=== PATIENT | female | born 1980 | race Caucasian/White ===

== ENCOUNTER 2018-10-11 00:56 | Outpatient (CLI) | payer OTHER, SELFPAY ==
--- NOTE | 2018-10-11 13:06 | DI.US_ITS ---
SYMPTOMS/DIAGNOSIS: MICROCYTIC ANEMIA, PASSING CLOTS WITH MENSES, ASSESS FOR ETIOLOGY PELVIC ULTRASOUND: A transabdominal and transvaginal examination was carried out. The uterus measures 7.3 cm in length, 3.5 cm in height and 8.4 cm in width. Four fundal fibroids are demonstrated, the largest of which measures 6 x 5.5 x 5.1 cm. There is also a 3.3 x 3.3 x 3.6 cm fibroid and a 5.5 x 5.5 cm fibroid and a 9 x 11 x 14.mm fibroid. The endometrium measures 16 mm. The right ovary measures 3.1 x 1.9 x 2 cm, the left ovary 2.4 x 2 x 1.6 cm. There is a question regarding a peripelvic cyst in the lower pole of the left kidney. There is no definite evidence of hydronephrosis. The left kidney measures 11.2 x 5.5 x 4.9 cm, the right kidney 9.1 x 3.8 x 5.4 cm. SUMMARY: Findings consistent with a fibroid uterus. There is a question regarding a peripelvic cyst in the lower pole of the left kidney. If there is any further question regarding the status of the left kidney, then a CT could be considered.
== END 2018-10-11 01:16 ==
PROVIDERS: PCP Nurse Practitioner Primary Care; Visit Provider Nurse Practitioner Primary Care
DX: D25.9 Leiomyoma of uterus, unspecified (principal); N28.1 Cyst of kidney, acquired; D50.9 Iron deficiency anemia, unspecified
CPT/HCPCS: 76830; 76856

== ENCOUNTER 2018-10-31 00:32 | Outpatient (CLI) | payer OTHER, SELFPAY ==
--- NOTE | 2018-10-31 13:17 | DI.CT_ITS ---
SYMPTOMS/DIAGNOSIS: PELVIS US CONSISTENT WITH FIBROID UTERUS, ? PELVIC CYST OF LOWER POLE OF LT KIDNEY, URGE INCONTINENCE OF URINE CT OF THE ABDOMEN AND PELVIS: Comparison is made with pelvic ultrasound dated [id number]. Images were performed from the lung bases through the ischial tuberosities after IV and without oral contrast. There is mild scarring at the left lung base. There are lesions in both superior left and right lobes of the liver consistent with hemangiomas. The patient is status post cholecystectomy. No biliary dilatation is seen. There is hardware in the lumbar spine creating mild artifact. There are two or three parapelvic cysts at the lower pole of the left kidney. 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 The bladder is unremarkable. There is no evidence of hydronephrosis. No urinary tract calculi are seen. The uterus is enlarged with multiple fibroids. The ovaries are unremarkable. There are diverticula scattered in the descending and sigmoid colon. There are no inflammatory changes or bowel dilatation. IMPRESSION: 1. Parapelvic cysts at the lower pole of the left kidney. There is no evidence of a suspicious mass. 2. Enlarged uterus with multiple fibroids. 3. Liver lesions, consistent with hemangiomas.
[2018-10-31] MEDS: Omnipaque 350 MG/ML 100 ML BTL IJ (13:18)
== END 2018-10-31 00:52 ==
PROVIDERS: PCP Nurse Practitioner Primary Care; Visit Provider Nurse Practitioner Primary Care
DX: N28.1 Cyst of kidney, acquired (principal); D25.9 Leiomyoma of uterus, unspecified; M85.2 Hyperostosis of skull; D18.03 Hemangioma of intra-abdominal structures; R32 Unspecified urinary incontinence
CPT/HCPCS: 74178; J3490

== ENCOUNTER 2018-11-09 15:32 | Outpatient (REF) | payer OTHER, SELFPAY ==
[2018-11-10 14:16] LABS: Chlamydia Result Negative; GC Result Negative; Specimen Description CERVIX
== END 2018-11-09 15:52 ==
LOC: LBN 15:32
PROVIDERS: PCP Nurse Practitioner Primary Care; Visit Provider Nurse Practitioner Family
DX: Z11.3 Encounter for screening for infections with a predominantly sexual mode of transmission (principal)
CPT/HCPCS: 87491; 87591

== ENCOUNTER 2022-02-03 15:34 | Outpatient (REF) | payer OTHER, SELFPAY ==
--- NOTE | 2022-02-03 13:30 | ENDOMET_PTH ---
PATIENT: Marisela Fraga LOC: [facility] U#:[id number] AGE/SX: 41/F ROOM: RE02/03/[address]: Estrella Morton DO : 1980 BED: DIS: 02/03/2022 SPEC #: [id number] RECD: 02/03/22 15:56 STATUS: FELIX REQ #: [id number] BALJEET: 02/03/22 13:[address]: Estrella Morton DEPT: Surgical Specimen RECD BY: Candice Delacruz ENTERED: 02/03/22 15:57 SP TYPE: Endomet OTHR DR: Mervat Vaughan Tissues: 1 - ENDOMETRIUM BX/EDWIN Procedures: GROSS AND MICRO LEVEL 4 Comments: [id number]
== END 2022-02-03 15:35 | disposition home or self-care (01) ==
LOC: LBN 15:34
PROVIDERS: PCP Nurse Practitioner Primary Care; Visit Provider Obstetrics & Gynecology
DX: N93.8 Other specified abnormal uterine and vaginal bleeding (principal); D25.9 Leiomyoma of uterus, unspecified; N85.01 Benign endometrial hyperplasia
CPT/HCPCS: 88305

== ENCOUNTER 2022-03-29 04:12 | Outpatient (CLI) | payer OTHER, SELFPAY ==
[2022-03-29 12:35] LABS: Abs Immature Grans 0.02 10^3/uL (0.0-0.06); Absolute Basophil Count 0.09 10^3/uL (0.0-0.2); Absolute Eosinophil Count 0.07 10^3/uL (0.0-0.7); Absolute Lymphocyte Count 1.64 10^3/uL (1.2-3.4); Absolute Monocyte Count 0.65 10^3/uL (0.1-0.8); Absolute Neutrophil Count 6.56 10^3/uL (1.2-6.7); Eosinophils % 0.8; HCT 43.2 % (36.0-46.0); HGB 14.1 g/dL (11.2-15.7); Immature Grans % 0.2; Lymphocytes % 18.2; MCH 29.4 pg (27.0-33.0); MCHC 32.6 % (32.0-36.0); MCV 90 fL (80-95); MPV 11.5 fL (8.0-11.0); Monocytes % 7.2; Neutrophils % 72.6; Platelet Count 319 10^3/uL (130-400); RBC 4.79 10^6/uL (3.93-5.22); RDW-SD 53.1 fL; WBC 9.03 10^3/uL (4.4-10.8)
[2022-03-29 14:59] LABS: Source Nasal/Nares
[2022-03-29 15:44] LABS: COVID-19 PCR Negative (Negative)
== END 2022-03-29 04:13 | disposition home or self-care (01) ==
LOC: LBO 04:13
PROVIDERS: PCP Internal Medicine; Visit Provider Obstetrics & Gynecology
DX: Z01.818 Encounter for other preprocedural examination (principal)
CPT/HCPCS: 36415; 86850; 86900; 86901; 87635; 85025

== ENCOUNTER 2022-03-31 11:34 | Observation (INO) | payer OTHER, SELFPAY ==
[2022-03-31] VITALS (15 sets, daily range): BP systolic 95–117; BP diastolic 47–74; PULSE 53–82; RESP 17–22; TEMP 35.6–36.9; O2SAT 93–99; BMI 37.6
[2022-03-31] MEDS: Lactated Ringers 1,000 ML 125 ML IV ×2 (06:52→11:49)
--- NOTE | 2022-03-31 06:59 | W.ANESPRE ---
General Info Date of Service Date Performed: 03/31/22 Height: 5 ft 7 in Weight: 109 kg Body Mass Index (BMI): 37.6 Surgical Procedure: Operation Date: 03/31/22 08:40 Proposed Procedure Side Surgeon p Hysterectomy Vaginal Laparoscopic Assist/Bi-Lat Salpingectomy/Possible Cysto Estrella DO Praveen Meds Allergies and Home Medications Allergies Allergy/AdvReac Type Severity Reaction Status Date / Time No Known Allergies Allergy Verified 03/31/22 06:31 Home Medication Medication Instructions Recorded ascorbic acid (vitamin C) 500 mg 500 mg PO DAILY 11/09/18 tablet colestipol 1 gram tablet 2 gm PO QAM 11/09/18 ferrous sulfate 325 mg (65 mg 325 mg PO DAILY 11/09/18 iron) tablet omeprazole 20 mg tablet,delayed 40 mg PO DAILY 11/09/18 release cyclobenzaprine 10 mg tablet 10 mg PO BID PRN 02/03/22 lidocaine 5 % topical patch 1 patch topical PRN 02/03/22 norethindrone acetate 5 mg tablet 5 mg PO BID #60 tabs 02/03/22 (Aygestin) vitamin B complex (B 1 tab PO DAILY 02/03/22 Complex-Vitamin B12 tablet) colestipol 1 gram tablet 1 g PO HS 03/29/22 Current Visit Medications: Current Medications Generic Name Dose Route Start Last Admin Trade Name Ethel PRN Reason Stop Dose Admin Ringer's Solution 1,000 mls @ 125 mls/hr 03/31/22 06:00 03/31/22 06:52 IV 03/31/22 16:00 125 mls/hr INFUSION TOMI Administration Cefazolin Sodium/Dextrose 2 gm in 50 mls @ 100 mls/hr 03/31/22 06:00 Ancef Duplex IVPB 03/31/22 23:59 PREOP TOMI IV Miscellaneous Supplies 1 each 03/31/22 06:00 Iv Access IV 03/31/22 23:59 DIRECTED TOMI Sodium Chloride 0 ml 03/31/22 06:00 Normal Saline Flush 10 Ml Syr IV 03/31/22 23:59 PRN PRN Sodium Chloride 0 ml 03/31/22 06:00 Normal Saline 10 Ml Vial IJ 03/31/22 23:59 DIRECTED PRN Sterile Water 0 ml 03/31/22 06:00 Water,Injection,Sterile 10 Ml Vial IJ 03/31/22 23:59 DIRECTED PRN PFSH Active Problems Active Problems: Problem Status Onset Code Fibroid uterus D25.9 Hx of microcytic hypochromic anemia Z86.2 Abnormal uterine bleeding N93.9 Medical History Medical History History of IBS Surgical History Surgical History History of ankle surgery ORIF History of spinal surgery 2 rods Tobacco Smoking/Tobacco Use Status: Never Substance Use Substance use: Never Prental History History 0 Para Hx # Term Pregnancies Multiple births Hx # Pregnancies Ectopic pregnancies AB induced Hx Number of Living Children AB spontaneous Vital Signs and Lab Results Vital Signs Most Recent Vital Signs in EMR: Most Recent Vital Signs Temp Pulse Resp BP Pulse Ox 36.9 C 77 18 107/74 96 03/31/22 06:18 03/31/22 06:18 03/31/22 06:18 03/31/22 06:18 03/31/22 06:18 Lab Results Blood Type / Crossmatch: Patient ABO/Rh B Positive 03/29/22 Antibody Screen NEGATIVE 03/29/22 Complete Blood Count: White Blood Count 9.03 10^3/uL (4.4-10.8) 03/29/22 12:25 Red Blood Count 4.79 10^6/uL (3.93-5.22) 03/29/22 12:25 Hemoglobin 14.1 g/dL (11.2-15.7) 03/29/22 12:25 Hematocrit 43.2 % (36.0-46.0) 03/29/22 12:25 Platelet Count 319 10^3/uL (130-400) 03/29/22 12:25 Complete Metabolic Panel: No Data to Display Liver Function Panel: No Data to Display Coagulation Panel: No Data to Display Cardiac Panel: No Data to Display Arterial Blood Gas: No Data to Display Venous Blood Gas: No Data to Display Pancreas Panel: No Data to Display Thyroid Panel: No Data to Display Infectious Disease: Coronavirus (COVID-19)(PCR) Negative (Negative) 03/31/22 07:08 Coronavirus 2019 Source Nasal/Nares 03/31/22 07:08 Blood Cultures: No Data to Display Toxicology Panel: No Data to Display Panel: No Data to Display Anesthesia Assessment and Plan Anesthesia History Personal History: No History of Anesthesia Complications Family History: No Family History of Anesthesia Complications Exercise Tolerance Exercise Tolerance: Metabolic Equivalents>4 Pertinent Negatives Pertinent Negatives: No Symptoms of GERD, No Major Cardiovascular Symptoms or Complaints, No Major Pulmonary Symptoms or Complaints and No History of CVA/TIA Cardiac & Pulmonary Exam Cardiac Exam: Normal S1/S2 Heart Sounds Pulmonary Exam: Clear Bilateral Breath Sounds Implantable Cardiac Device Does patient have a Pacemaker or an ICD?: No Airway Exam Known Difficult Airway: No Mallampati Class: 2 Mouth Opening: Normal (> 3cm) Thyromental Distance: Greater than 3 cm Neck Range of Motion: Limited ROM (Limited looking toward left, good extension) Neck Circumference: Normal Teeth Condition: Normal Dentition (Front top teeth chipped) ASA Classification ASA Score: ASA 2 Emergency Case?: No NPO Status NPO Status: NPO Clears >2 hours, Solids >8 hours Status Status: Negative HCG Anesthesia Plan Resuscitation Status: Full Code Anesthesia Technique: General Anesthesia Airway Planned: Endotracheal Tube Pain Management: Intrathecal Analgesia (Patient had rods placed in 2004 for lower back fracture, will attempt intrathecal narcotics but move on without if technically difficult) Monitors Used: Standard Monitors
[2022-03-31 07:19] LABS: Source Nasal/Nares
[2022-03-31 08:14] LABS: COVID-19 PCR Negative (Negative)
--- NOTE | 2022-03-31 10:15 | RT.EKG_ITS ---
APPROVED REPORT Exam: Resting ECG Reason for Exam: tachycardia Patient Location: I HR:59 bpm ECG Measurements Heart Rate 59 AXIS AR 158 P 56 QRSd 82 QRS 37 QT 457 T 17 QTc 452 Conclusion Sinus bradycardia...rate< 60 Normal Electrocardiogram
--- NOTE | 2022-03-31 10:27 | W.PM.PROGNOT ---
Date of Service Date of service: 03/31/22 Time of Service: 10:27 Assessment and Plan Assessment and plan (1) Fibroid uterus: Status: Acute Assessment and plan: Patient has a significantly large fibroid uterus which is causing abnormal uterine bleeding, and chronic anemia. Currently her hemoglobin has been stable at 14.1 with the use of progestational agents. She was here today for definitive surgery with hysterectomy, however she did have an immediate preoperative complication of sustained tachycardia. In light of this fact, surgery was canceled and postponed to a later date. She will have an evaluation by her hospitalist service while she is here. She will await resolution of her intrathecal. (2) Hx of microcytic hypochromic anemia: Status: Acute (3) Tachycardia: Status: Acute Assessment and plan: Current pulse is within normal range. Blood pressure is stable. Laboratory studies, EKG, hospitalist consultation all ordered. All of her questions were answered. Subjective Subjective Interval history since last seen: When patient was in the operating suite this morning, she had an intrathecal placed for pain control postoperatively. Upon her arrival to the OR, she had stable vital signs with blood pressure that was normal and a pulse in the 60s. Immediately post intrathecal placement, upon laying supine, she had an elevation in her pulse to 160s 170s which was sustained over the period of 5 to 10 minutes. During that time, her blood pressure was low in the 80s over 40s. She, however was asymptomatic with no chest pain, or shortness of breath. She was not aware that her heart rate was as fast as it was. In light of this new onset of tachycardia, though it spontaneous recently resolved, may decision was to postpone her surgical procedure in light of the fact that this will be a major abdominal procedure. She will be admitted for a short stay observation due to the fact that she received intrathecal narcotics. In the interval, I did contact cardiology for possible outpatient evaluation, and our hospitalist service for evaluation while inpatient. They recommended ordering laboratory studies which would include a troponin, basic metabolic panel, magnesium, be placed on telemetry, and have a stat EKG. Hospitalist service will see her and evaluate her today as well. All of these findings were discussed with both the patient, and her mother who is her support. At this point, she is feeling reasonably well, though disappointed in not having her surgery today. Exam Narrative Exam Narrative: Alert, oriented, no acute distress Const Nutritional Appearance: average body habitus Eyes General: appearance normal, both eyes and all related structures Neck Neck: normal visual inspection, supple and no lymphadenopathy noted Resp Effort & Inspection: normal respiratory effort, no audible wheezes and no cough Cardio Rate: regular rate Rhythm: regular rhythm Objective Last Vital Signs Temp 98.1 F 03/31/22 10:14 Pulse 78 03/31/22 10:14 Resp 20 03/31/22 10:14 BP 96/47 L 03/31/22 10:14 Pulse Ox 96 03/31/22 10:14 Laboratory Results - last 24 hr 03/31/22 07:08 COVID-19 Source Nasal/Nares SARS-CoV-2 (PCR) Negative
[2022-03-31 11:14] LABS: Anion Gap 6.4 mmol/L (3-11); BUN 9 mg/dL (7-18); CO2 24.6 mmol/L (21.0-32.0); CREATININE 0.8 mg/dL (0.55-1.02); Calcium 8.5 mg/dL (8.5-10.1); Chloride 109 mmol/L (98-107); Glucose 86 mg/dL (74-106); Magnesium 1.8 mg/dL (1.8-2.4); Potassium 4.2 mmol/L (3.5-5.1); Sodium 140 mmol/L (136-145); Troponin I < 50 ng/L (<or=60)
--- NOTE | 2022-03-31 12:13 | W.ANESPOSTOP ---
Postoperative Evaluation Date, Time and Location Date Performed: 03/31/22 Time Performed: 10:45 Patient Location: PACU Vital Signs Most Recent Imported Vital Signs: Most Recent Vital Signs Temp Pulse Resp BP Pulse Ox 35.9 C L 53 L 18 109/69 97 03/31/22 12:05 03/31/22 12:05 03/31/22 12:05 03/31/22 12:05 03/31/22 12:05 Pain Score Most Recent Pain Score: Most Recent Pain Score Pain Level 0 03/31/22 12:05 Assessment Mental Status: Awake (Alert & Oriented to Patient Baseline) Airway and Respiratory Function: Patent airway with normal (patient baseline) respiratory exam Cardiovascular Function: Hemodynamically Stable Hydration Status: Adequately Hydrated Nausea & Vomiting: No Nausea or Vomiting Pain: Pt. Denies Any Pain Peripheral Nerve Block: Patient did not receive a nerve block Postoperative Comments:: Plan for overnight due to intrathecal narcotics. cardiology work up to evaluate SVt
[2022-03-31 12:41] LABS: Lab Add On Test DONE
[2022-03-31 13:07] LABS: FREE T4 1.21 ng/dL (0.76-1.46); TSH 1.34 uIU/mL (0.36-3.74)
[2022-03-31 14:28] LABS: Troponin I < 50 ng/L (<or=60)
--- NOTE | 2022-03-31 14:38 | DI.US_ITS ---
APPROVED REPORT EXAM: Comprehensive 2D, Doppler, and color-flow Echocardiogram Patient Location: In-Patient Room/Bed: [facility] Cook Specialty: Ana María Santos RDCS (AE) Indications: SVT Other Information Study Quality: Adequate. Technically limited study due to body habitus, inability to position patient exam done supine bedside. Conclusion Normal left ventricular wall thickness and chamber size. Estimated ejection fraction is 60%. Wall m otion is normal Normal right ventricular size and systolic function Both atria are normal in size There is no structural or hemodynamically significant valvular disease Estimated right ventricular systolic pressure is normal, 24 mmHg Wall motion Left Ventricle The left ventricle is normal size. The left ventricular systolic function is normal. The left ventric ular ejection fraction is within the normal range. There is normal left ventricular wall thickness. T here is normal LV segmental wall motion. There is no ventricular septal defect visualized. LVEF is 60 %. Right Ventricle The right ventricle is normal size. The right ventricular systolic function is normal. The RVSP is 23 .6 mmHg. Atria The left atrium size is normal. The right atrium size is normal. The interatrial septum is intact wit h no evidence for an atrial septal defect. Aortic Valve The aortic valve is normal in structure. Aortic valve is trileaflet. There is no aortic valvular sten osis. No aortic regurgitation is present. Mitral Valve The mitral valve is normal in structure. No evidence of mitral valve stenosis. Trace to mild mitral r egurgitation. Tricuspid Valve The tricuspid valve is normal in structure. There is no tricuspid valve stenosis. Mild tricuspid regu rgitation. Pulmonic Valve The pulmonary valve is normal in structure. There is no pulmonic valvular stenosis. There is no pulmo serafin valvular regurgitation. Great Vessels The aortic root is normal in size. The ascending aorta is normal in size. Aortic arch is normal in ca liber. IVC is normal in size and collapses >50% with inspiration. Pericardium There is no pericardial effusion. 2D Dimensions IVSD d PLAX 0.68 cm F: 0.6-1.0 LV Vol A2C d MOD 103.9 mL LVPW d PLAX 0.69 cm F: 0.6 - 1.0 LV Vol A4C d MOD 121.0 mL LVID d PLAX 4.71 cm F: 3.8 - 5.2 LA vol/ BSA A2C s A-L 17.0 mL/m2 LVDs 3.10 cm F: 2.2 - 3.5 LA vol/ BSA A4C s A-L 17.2 mL/m2 Ao Root d 3.19 cm F: 2.7 - 3.3 LA Vol/ BSA Biplane s A-L 17.4 mL/m2 Ao Asc Diam d 3.31 cm F: 2.3 - 3.1 LA Area A4C s MOD 14.92 cm2 LV EF Teichholz 62.0 % LA Area A2C s MOD 14.57 cm2 LVEF (Edwards's) 60.43 % F: 54 - 74 LV EF A4C MOD 59.3 % LV Volume 82.53 mL F: 46 - 106 LV EF A2C MOD 60.9 % LV Volume Index 37.85 mL/m2 F: 29 - 61 LV EF Biplane MOD 60.4 % LV Vol Biplane MOD 113.2 mL SV 68.39 mL FS 33.30 % SV Index 31.36 mL/m2 M-Mode TAPSE 3.67 cm (M/F) >1.7 LV Diastology MV E' medial 0.129 (>0.07 m/s) E/A Ratio 1.8 LV E/e MED 6.35 (<14) MV E Vmax 0.82 (0.4-1.3 m/s) MV E' lateral 0.156 (>0.1 m/s) MV A Vmax 0.45 (0.4-1.3 m/s) LV E/e LAT 5.25 (<14) MV E/A Ratio 1.69 MV E/E' medial 6.38 MV E/E' lateral 5.25 Aortic Valve LVOT Area 3.76 cm2 AoV Area Vmax 3.07 cm2 LVOT Vmax 0.96 m/s AoV Area/ BSA (Vmax) 1.41 cm2/m2 LVOT Mean Conrad. 0.61 m/s MARINO Mean Conrad. 2.64 cm2 LVOT Peak Grad 3.7 mmHg MARINO Mean Conrad. Index 1.21 cm2/m2 LVOT Mean Grad 1.8 mmHg LVOT VTI 0.243 m LVOT Diam s 2.15 cm AoV Vmax 1.18 m/s Velocity Ratio 0.81 AoV Mean Conrad. 0.87 m/s AoV Peak Grad 5.5 mmHg LVOT SV 91.56 mL AoV Mean Grad 3.3 mmHg AoV VTI 0.278 m AoV Area VTI 3.30 cm2 AoV Area/ BSA (VTI) 1.51 cm/m2 Mitral Valve MV DT 205 (160-240 msec) MV PHT 59 msec MV Area PHT 3.70 cm2 MV VTI 0.351 m MV Area VTI 2.61 (4.0-6.0 cm2) Pulmonary Valve PV Vmax 0.91 (0.5-1.5 m/s) RVOT Peak Gr. 1.80 mmHg PV Peak Grad 3.3 mmHg RVOT Mean Gr. 0.85 mmHg PV Mean Grad 1.6 mmHg RVOT VTI 0.156 m PV VTI 0.174 m RVOT Vmax 0.67 m/s Tricuspid Valve TR Peak Grad 20.5 mmHg TR Vmax 2.27 m/s RA Pressure 3.00 mmHg RVSP (TR) 23.6 mmHg
--- NOTE | 2022-03-31 16:23 | PGE_ITS ---
Date of Service Date of service: 03/31/22 Time of Service: 16:23 Subjective Subjective Interval history since last seen: Patient seen this afternoon. Labs reviewed. Vital signs are stable. Echocardiogram was performed and we are awaiting results. Patient is having more sensation in her lower extremities. Voiding without difficulty. Anticipate discharge home tomorrow for further cardiology evaluation and work- up. We will reschedule surgical intervention at an appropriate interval once cardiac clearance is performed. All questions were answered. Objective Last Vital Signs Temp 97.7 F 03/31/22 14:00 Pulse 62 03/31/22 14:00 Resp 17 03/31/22 14:00 BP 117/74 03/31/22 14:00 Pulse Ox 97 03/31/22 14:00 Laboratory Results - last 24 hr 03/31/22 03/31/22 03/31/22 07:08 10:50 10:50 Sodium 140 Potassium 4.2 Chloride 109 H Carbon Dioxide 24.6 Anion Gap 6.4 BUN 9 Creatinine 0.8 Est GFR (CKD-EPI 2020) 93.70 Glucose 86 Calcium 8.5 Magnesium 1.8 Troponin I < 50 TSH Free T4 COVID-19 Source Nasal/Nares SARS-CoV-2 (PCR) Negative Add-On Test Request DONE 03/31/22 03/31/22 10:50 14:00 Sodium Potassium Chloride Carbon Dioxide Anion Gap BUN Creatinine Est GFR (CKD-EPI 2020) Glucose Calcium Magnesium Troponin I < 50 TSH 1.34 Free T4 1.21 COVID-19 Source SARS-CoV-2 (PCR) Add-On Test Request
--- NOTE | 2022-03-31 18:56 | W.MEDCONSULT ---
Date of service: 03/31/22 Time of Service: 18:56 Assessment and Plan Assessment and plan (1) Tachycardia: Status: Acute Assessment and plan: Unfortunately, I do not have a strip of this available for interpretation at this time, but reviewing anesthesia record, it appears to have been SVT. SVT could have been triggered by a response to pain, intrathecal anesthesia, or possible there is an underlying tendency for SVT. TSH ok. Will monitor on tele. No evidence of ACS. Echo done, read pending. Would not start a beta arias at this time as this may have been situational. Would benefit from a cardiac event recorder on d/c. History of Present Illness History of Present Illness Chief Complaint: rapid heart rate after placement of intrathecal catheter for pain control Narrative: Ms Fraga is a 42 year old female with PMHx of abnormal uterine bleeding, fibroid uterus, IBS, GERD, DENISE on CPAP, obesity w/ BMI of 37.5 kg/m2, who was supposed to undergo a lap-assisted vaginal hysterectomy with bilateral salpingectomy, when she was noted to have HR going up to 160s-170s immediately after placement of an intrathecal catheter for anesthesia. Reportedly, this lasted about 10 minutes and resolved on its own. Her procedure was cancelled. The patient states she may have felt something in her chest, but it didn't bother her. She was not dizzy. She states she has not had this happen before to her knowledge. She had one syncopal event before - about 10 years ago - when she was very sick and required a bunch of antibiotics. She does not have a family history of heart disease. The EKG done after the episode showed sinus bradycardia without signs of acute ischemia. Review of Systems All systems reviewed & are unremarkable except as noted in HPI and below PFSH All Active Problems (Updated 03/31/22 @ 19:46 by Stacey Mast MD) Obesity (BMI 30-39.9) (Acute) Insomnia (Acute) DENISE on CPAP (Chronic) Tachycardia (Acute) Fibroid uterus (Acute) Hx of microcytic hypochromic anemia (Acute) Abnormal uterine bleeding (Acute) Medical History (Updated 03/31/22 @ 19:46 by Stacey Mast MD) History of IBS Surgical History History of ankle surgery ORIF History of spinal surgery 2 rods Family History (Updated 03/31/22 @ 19:47 by Stacey Mast MD) Mother Thyroid disorder Maternal Aunt Diabetes Social History Smoking/Tobacco Use Status: Never Smoking risk assessment performed?: Yes Drug use: Never 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 Reproductive History Menstrual control method: condoms History History 0 Para Hx # Term Pregnancies Multiple births Hx # Pregnancies Ectopic pregnancies AB induced Hx Number of Living Children AB spontaneous Exam Narrative Exam Narrative: General: Very pleasant obese female who appears comfortable when laying in bed, A&Ox3, NAD Neurological: A&Ox3, no focal deficits Psychiatric: Appropriate speech pattern/content Skin: Visible skin intact HEENT: Atraumatic, normocephalic, EOMI, MMM, clear oropharynx, no submandibular or cervical lymphadenopathy, no goiter or JVD Cardiovascular: RRR, no m/r/g Lungs: CTAB anteriorly Gastrointestinal: soft, nontender, nondistended Genitourinary: deferred Extremities: trace edema BLEs Results Last Vital Signs Temp 36.5 C 03/31/22 14:00 Pulse 62 03/31/22 14:00 Resp 17 03/31/22 14:00 BP 117/74 03/31/22 14:00 Pulse Ox 97 03/31/22 14:00 Labs Result diagrams: 03/31/22 10:50 Labs: Laboratory Results - last 24 hr 03/31/22 03/31/22 03/31/22 07:08 10:50 10:50 Sodium 140 Potassium 4.2 Chloride 109 H Carbon Dioxide 24.6 Anion Gap 6.4 BUN 9 Creatinine 0.8 Est GFR (CKD-EPI 2020) 93.70 Glucose 86 Calcium 8.5 Magnesium 1.8 Troponin I < 50 TSH Free T4 COVID-19 Source Nasal/Nares SARS-CoV-2 (PCR) Negative Add-On Test Request DONE 03/31/22 03/31/22 10:50 14:00 Sodium Potassium Chloride Carbon Dioxide Anion Gap BUN Creatinine Est GFR (CKD-EPI 2020) Glucose Calcium Magnesium Troponin I < 50 TSH 1.34 Free T4 1.21 COVID-19 Source SARS-CoV-2 (PCR) Add-On Test Request Imaging Additional studies: EKG: HR 58, SB, no acute ischemia
[2022-04-01 03:15] VITALS: BP 105/71; PULSE 55; RESP 17; TEMP 36.4; O2SAT 99
[2022-04-01 06:55] LABS: HCT 39.9 % (36.0-46.0)
[2022-04-01 07:00] VITALS: PULSE 91
[2022-04-01 07:14] LABS: Anion Gap 6.3 mmol/L (3-11); BUN 8 mg/dL (7-18); CO2 27.7 mmol/L (21.0-32.0); CREATININE 0.8 mg/dL (0.55-1.02); Calcium 8.2 mg/dL (8.5-10.1); Calculated LDL 67 mg/dL (<100); Chloride 105 mmol/L (98-107); Cholesterol 108 mg/dL (<200); Glucose 79 mg/dL (74-106); HDL Cholesterol 30 mg/dL (40-60); Magnesium 1.7 mg/dL (1.8-2.4); Potassium 4.1 mmol/L (3.5-5.1); Sodium 139 mmol/L (136-145); Triglyceride 58 mg/dL (<150)
[2022-04-01 07:31] VITALS: BP 110/73; PULSE 59; RESP 16; TEMP 36.8; O2SAT 98
--- NOTE | 2022-04-01 08:09 | RESPIRATORY ---
Rt spoke with patient concerning history of DENISE on CPAP to see if patient needs a device at night. [facility] use [facility] device PRN or as she feels she needs it. Patient stated she uses a [employer] [id number] at night but does not feel she needs it at this stay as she's planning to D/C home today.
--- NOTE | 2022-04-01 08:13 | PGE_ITS ---
Date of Service Date of service: 04/01/22 Time of Service: 08:13 Assessment and Plan Assessment and plan (1) Tachycardia: Status: Acute Assessment and plan: Patient had an episode of symptoms sustained what seem to be supraventricular tachycardia after placement of her intrathecal for pain control. Overall at this point, she is been doing well. She was admitted without surgery for cardiac evaluation and work-up. She has had an echocardiogram which is pending read, and the anticipation would be for her to be discharged home with an event recorder and cardiology follow-up for clearance. (2) Fibroid uterus: Status: Acute Assessment and plan: Once medically clear and stable, will reengage for hysterectomy in the relatively near future. Subjective Subjective Interval history since last seen: Patient seen and examined this morning. Overall doing well. Having no pain. She has had no chest pain, no shortness of breath, no sensation of irregular heart rhythm. Greatly appreciate hospitalist service for management for her evaluation and work-up. Awaiting echocardiogram read. Magnesium is being replaced this morning. Patient is tolerating a regular diet. I have no issues with her returning to work when she is discharged prior to her Exam Narrative Exam Narrative: Alert, oriented, no acute distress Const General: cooperative, healthy appearing and comfortable [facility] Head: normal to inspection Eyes General: appearance normal, both eyes and all related structures Neck Neck: normal visual inspection Resp Effort & Inspection: normal respiratory effort Cardio Rate: regular rate Objective Last Vital Signs Temp 98.2 F 04/01/22 07:31 Pulse 59 L 04/01/22 07:31 Resp 16 04/01/22 07:31 BP 110/73 04/01/22 07:31 Pulse Ox 98 04/01/22 07:31 Laboratory Results - last 24 hr 03/31/22 03/31/22 03/31/22 07:08 10:50 10:50 Hgb Hct Sodium 140 Potassium 4.2 Chloride 109 H Carbon Dioxide 24.6 Anion Gap 6.4 BUN 9 Creatinine 0.8 Est GFR (CKD-EPI 2020) 93.70 Glucose 86 Calcium 8.5 Magnesium 1.8 Troponin I < 50 Triglycerides Total Cholesterol LDL Cholesterol, Calc HDL Cholesterol TSH Free T4 SARS-CoV-2 (PCR) Negative Add-On Test Request DONE 03/31/22 03/31/22 04/01/22 10:50 14:00 06:34 Hgb Hct Sodium 139 Potassium 4.1 Chloride 105 Carbon Dioxide 27.7 Anion Gap 6.3 BUN 8 Creatinine 0.8 Est GFR (CKD-EPI 2020) 93.70 Glucose 79 Calcium 8.2 L Magnesium 1.7 L Troponin I < 50 Triglycerides 58 Total Cholesterol 108 LDL Cholesterol, Calc 67 HDL Cholesterol 30 L TSH 1.34 Free T4 1.21 SARS-CoV-2 (PCR) Add-On Test Request 04/01/22 06:34 Hgb 13.0 Hct 39.9 Sodium Potassium Chloride Carbon Dioxide Anion Gap BUN Creatinine Est GFR (CKD-EPI 2020) Glucose Calcium Magnesium Troponin I Triglycerides Total Cholesterol LDL Cholesterol, Calc HDL Cholesterol TSH Free T4 SARS-CoV-2 (PCR) Add-On Test Request
--- NOTE | 2022-04-01 08:28 | CCONE_ITS ---
Date of service: 04/01/22 Time of Service: 08:29 Assessment and Plan Assessment and plan (1) Tachycardia: Status: Acute Assessment and plan: By history this is most likely supraventricular tachycardia. I would agree with Dr. Mast that it appeared to be triggered by the spinal procedure. I agree th at she does not need to be prescribed AV bárbara blocking drugs at this point in time. I would see no specific cardiac contraindication to surgery. Possibly using general anesthesia would be better as it allows for subtle adjustments in the level of anesthesia as needed THERE IS NO INDICATION FOR ANY TYPE OF AMBULATORY MONITORING OR ANY ADDITIONAL CARDIAC TESTING Thank you for the opportunity to participate in the care of this patient. Please do not hesitate to contact me if additional questions or concerns arise History of Present Illness History of Present Illness Chief Complaint: Elevated heart rate Narrative: This is a 42-year-old woman who presented for surgery because of a fibroid uterus. She had an intrathecal narcotic injection and almost immediately had elevation of heart rate to 1 60-1 70. There was associated relative hypotension with blood pressures in the 80s systolic. No strips from this dysrhythmia are available. Reportedly it lasted about 10 minutes and then resolved. I cannot tell from the notes whether to resolved abruptly or gradually. Patient has been observed overnight, has had no subsequent dysrhythmia, has no cardiac symptoms. Her EKG is normal. Her echocardiogram shows no structural heart disease. She has no prior cardiac history Review of Systems Cardiovascular Cardiovascular: [facility] All Active Problems (Updated 03/31/22 @ 19:46 by Stacey Mast MD) Obesity (BMI 30-39.9) (Acute) Insomnia (Acute) DENISE on CPAP (Chronic) Tachycardia (Acute) Fibroid uterus (Acute) Hx of microcytic hypochromic anemia (Acute) Abnormal uterine bleeding (Acute) Medical History (Updated 03/31/22 @ 19:46 by Stacey Mast MD) History of IBS Surgical History History of ankle surgery ORIF History of spinal surgery 2 rods Family History (Updated 03/31/22 @ 19:47 by Stacey Mast MD) Mother Thyroid disorder Maternal Aunt Diabetes Social History Smoking/Tobacco Use Status: Never Smoking risk assessment performed?: Yes Drug use: Never 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 Reproductive History Menstrual control method: condoms History History 0 Para Hx # Term Pregnancies Multiple births Hx # Pregnancies Ectopic pregnancies AB induced Hx Number of Living Children AB spontaneous Exam Const Other: Well-developed well-nourished mildly overweight no acute distress Neck Other: Neck veins are flat carotid pulsations are normal there are no bruits Resp Auscultation: clear to auscultation bilaterally Cardio Other: Heart is regular normal S1-S2 physiologically split no murmur or gallop Skin Other: Warm and dry Extrem Other: There is no peripheral edema Results Last Vital Signs Temp 36.8 C 04/01/22 07:31 Pulse 59 L 04/01/22 07:31 Resp 16 04/01/22 07:31 BP 110/73 04/01/22 07:31 Pulse Ox 98 04/01/22 07:31 Labs Result diagrams: 04/01/22 06:34 04/01/22 06:34 Labs: Laboratory Results - last 24 hr 03/31/22 03/31/22 03/31/22 10:50 10:50 10:50 Hgb Hct Sodium 140 Potassium 4.2 Chloride 109 H Carbon Dioxide 24.6 Anion Gap 6.4 BUN 9 Creatinine 0.8 Est GFR (CKD-EPI 2020) 93.70 Glucose 86 Calcium 8.5 Magnesium 1.8 Troponin I < 50 Triglycerides Total Cholesterol LDL Cholesterol, Calc HDL Cholesterol TSH 1.34 Free T4 1.21 Add-On Test Request DONE 03/31/22 04/01/22 04/01/22 14:00 06:34 06:34 Hgb 13.0 Hct 39.9 Sodium 139 Potassium 4.1 Chloride 105 Carbon Dioxide 27.7 Anion Gap 6.3 BUN 8 Creatinine 0.8 Est GFR (CKD-EPI 2020) 93.70 Glucose 79 Calcium 8.2 L Magnesium 1.7 L Troponin I < 50 Triglycerides 58 Total Cholesterol 108 LDL Cholesterol, Calc 67 HDL Cholesterol 30 L TSH Free T4 Add-On Test Request
[2022-04-01] MEDS: MAGNESIUM SULFATE 2 GM/50 ML BAG IVPB (09:57)
--- NOTE | 2022-04-01 11:00 | W.PM.DS.N ---
Date of service: 04/01/22 Time of Service: 11:00 DS: Diagnosis Discharge Diagnosis (1) Tachycardia: Status: Acute Asessment and Plan: Patient had an intrathecal placed for postoperative pain control and subsequently developed a significant episode of tachycardia for which her surgery was then canceled and postponed to a later date after cardiology and hospitalist work-up. Episode of tachycardia resolved and did not return. (2) Fibroid uterus: Status: Acute Asessment and Plan: Markedly enlarged symptomatic fibroid uterus. We will schedule surgical intervention in the near future (3) DENISE on CPAP: Status: Chronic Asessment and Plan: Encouraged use of home CPAP. Discharge Plan Disposition Patient Disposition: Home Condition: Good Discharge Details Reason For Visit: Tachycardia Admit Date/Time: 03/31/22 11:34 Admit Provider: Estrella Morton Attending Provider: Estrella Morton Primary Care Provider: RONAL MINER Hospital Course Hospital Course: Patient was admitted for assisted vaginal hysterectomy, possible total abdominal hysterectomy for markedly enlarged fibroid uterus. She had a preoperative evaluation and spinal anesthesia placed for postoperative pain control and subsequently developed a supraventricular tachycardia which was sustained with a modest drop in her blood pressure. For this reason the procedure was canceled and patient was admitted overnight both for resolution of her intrathecal narcotics, and further evaluation. She had consultation with both hospitalist and cardiology services. She had an EKG which was normal no other events were noted, laboratory studies were essentially normal. She had an echocardiogram which was also normal and was given clearance by cardiology. There is still consideration of a home event monitor. Her presurgical procedure will be rescheduled at a later date. All of her questions were answered. Home Meds and New Rx's Prescriptions: No Action omeprazole 20 mg tablet,delayed release (DR/EC) 40 mg PO DAILY colestipol 1 gram tablet 2 gm PO QAM ascorbic acid (vitamin C) 500 mg tablet 500 mg PO DAILY ferrous sulfate 325 mg (65 mg iron) tablet 325 mg PO DAILY cyclobenzaprine 10 mg tablet 10 mg PO BID PRN lidocaine 5 % adhesive patch,medicated 1 patch topical PRN Rx Instructions: leave on most painful area for up to 12 hrs vitamin B complex [B Complex-Vitamin B12] Tablet 1 tab PO DAILY norethindrone acetate [Aygestin] 5 mg tablet 5 mg PO BID Qty: 60 1RF colestipol 1 gram Tablet 1 g PO HS Discharge Instructions Additional Instructions: Surgery to be rescheduled Activity:: Activity as Tolerated Equipment/Supplies:: No Equipment Needed Diet:: As Tolerated Discharge Orders Discharge Orders: Discharge Order (Routine); Ordered 04/01/22 Ordered By: Estrella Morton DS: Summary Time Spent with Patient providing and/or coordinating discharge services: Greater than 30 minutes Status at Discharge Functional status at discharge: independent ambulation Overall status at discharge: patient is back to baseline Mental Status: mental status grossly normal Speech and Movement: speech and movement normal Mood: congruent mood Affect: normal affect Exam Narrative Exam Narrative: See physical exam from progress note dated 04/01/2022 Psych Mental Status: mental status grossly normal Speech and Movement: speech and movement normal Mood: congruent mood Affect: normal affect DS: Data Vitals/I&O Vitals and I&O: Vital Signs Temperature 98.2 F 04/01/22 07:31 Temperature Source Tympanic 04/01/22 07:31 Pulse 59 L 04/01/22 07:31 Pulse Rhythm Regular 04/01/22 03:06 Respiratory Rate 16 04/01/22 07:31 Respiratory Effort Non-Labored 04/01/22 03:06 Respiratory Depth Normal 04/01/22 03:06 Respiratory Pattern Normal 04/01/22 03:06 Blood Pressure 110/73 04/01/22 07:31 Pulse Oximetry 98 04/01/22 07:31 Respiratory End-tidal CO2 29 03/31/22 10:00 Oxygen Delivery Method Room Air 04/01/22 07:31 Oxygen Flow Rate 0 04/01/22 07:31 Pain Level 0 04/01/22 07:31 Comment 03/31/22 15:53 Intake & Output 03/31/22 03/31/22 04/01/22 11:59 23:59 11:59 Intake Total 1272.917 / 2298.750 1025.833 / 2298.750 Balance 1272.917 / 2298.750 1025.833 / 2298.750 Weight 239 lb 8 oz Intake: IV 722.917 / 1268.750 545.833 / 1268.750 Oral 550 / 1030 480 / 1030 Other: Urine Color Yellow Yellow Urine Appearance Clear Clear Urine Odor Strong Comment Incontinent x1 of a moderate amount of urine in the bed. Bed pad was changed. Cynthia pad was placed to assess for vaginal bleeding. patient had minimal incont at this time, some minimal viginal bleeding. RN notifed pt voided independently. pt denies dysuria Emesis Description None Voiding Methods Incontinent Data Completed and Pending Labs on day of discharge: Labs from last 24 hours 04/01/22 04/01/22 03/31/22 06:34 06:34 14:00 Hgb 13.0 Hct 39.9 Sodium 139 Potassium 4.1 Chloride 105 Carbon Dioxide 27.7 Anion Gap 6.3 BUN 8 Creatinine 0.8 Est GFR (CKD-EPI 2020) 93.70 Glucose 79 Calcium 8.2 L Magnesium 1.7 L Troponin I < 50 Triglycerides 58 Total Cholesterol 108 LDL Cholesterol, Calc 67 HDL Cholesterol 30 L TSH Free T4 Add-On Test Request 03/31/22 03/31/22 03/31/22 10:50 10:50 10:50 Hgb Hct Sodium 140 Potassium 4.2 Chloride 109 H Carbon Dioxide 24.6 Anion Gap 6.4 BUN 9 Creatinine 0.8 Est GFR (CKD-EPI 2020) 93.70 Glucose 86 Calcium 8.5 Magnesium 1.8 Troponin I < 50 Triglycerides Total Cholesterol LDL Cholesterol, Calc HDL Cholesterol TSH 1.34 Free T4 1.21 Add-On Test Request DONE [facility] All Active Problems (Updated 03/31/22 @ 19:46 by Stacey Mast MD) Obesity (BMI 30-39.9) (Acute) Insomnia (Acute) DENISE on CPAP (Chronic) Tachycardia (Acute) Fibroid uterus (Acute) Hx of microcytic hypochromic anemia (Acute) Abnormal uterine bleeding (Acute) Medical History (Updated 03/31/22 @ 19:46 by Stacey Mast MD) History of IBS Surgical History History of ankle surgery ORIF History of spinal surgery 2 rods Family History (Updated 03/31/22 @ 19:47 by Stacey Mast MD) Mother Thyroid disorder Maternal Aunt Diabetes Social History Smoking/Tobacco Use Status: Never Smoking risk assessment performed?: Yes Drug use: Never 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
[2022-04-01 11:26] VITALS: BP 116/74; PULSE 61; RESP 18; TEMP 37.1; O2SAT 96
== END 2022-04-01 12:04 | disposition home or self-care (01) ==
LOC: MS 11:46
PROVIDERS: Internal Medicine; Admitting Provider Obstetrics & Gynecology; PCP Internal Medicine; Visit Provider Obstetrics & Gynecology
PROC: 0UT9FZZ Resection of Uterus, Via Natural or Artificial Opening With Percutaneous Endoscopic Assistance (ICD-10-PCS; CPT 58550; principal; 2022-03-31 08:30)
DX: D25.9 Leiomyoma of uterus, unspecified (principal); T40.605A Adverse effect of unspecified narcotics, initial encounter; I47.1 Supraventricular tachycardia; Z53.09 Procedure and treatment not carried out because of other contraindication; G47.33 Obstructive sleep apnea (adult) (pediatric); Z79.899 Other long term (current) drug therapy; E66.9 Obesity, unspecified; Z68.37 Body mass index [BMI] 37.0-37.9, adult; D50.9 Iron deficiency anemia, unspecified; N93.8 Other specified abnormal uterine and vaginal bleeding; Z83.49 Family history of other endocrine, nutritional and metabolic diseases; Z20.822 Contact with and (suspected) exposure to COVID-19; I95.2 Hypotension due to drugs; Y92.239 Unspecified place in hospital as the place of occurrence of the external cause
CPT/HCPCS: 58550; 36415; 80048; 80061; 87635; 96361; 96365; 83735; 84439; 84443; 84484; 85014; 85018; 93005; 93010; 93306; 99219; J1100; J1885; J2250; J2405; J2704; J3010

== ENCOUNTER 2022-04-12 03:06 | Outpatient (CLI) | payer OTHER, SELFPAY ==
[2022-04-12 17:00] LABS: Source Nasal/Nares
[2022-04-12 17:33] LABS: COVID-19 PCR Negative (Negative)
== END 2022-04-12 03:07 | disposition home or self-care (01) ==
LOC: LBO 03:06
PROVIDERS: PCP Internal Medicine; Visit Provider Obstetrics & Gynecology
DX: Z20.822 Contact with and (suspected) exposure to COVID-19 (principal); Z01.818 Encounter for other preprocedural examination
CPT/HCPCS: 87635

== ENCOUNTER 2022-04-12 03:18 | Outpatient (CLI) | payer OTHER, SELFPAY ==
[2022-04-12 12:08] LABS: Abs Immature Grans 0.04 10^3/uL (0.0-0.06); Absolute Basophil Count 0.07 10^3/uL (0.0-0.2); Absolute Eosinophil Count 0.04 10^3/uL (0.0-0.7); Absolute Monocyte Count 0.62 10^3/uL (0.1-0.8); Absolute Neutrophil Count 6.48 10^3/uL (1.2-6.7); Basophils % 0.8; Eosinophils % 0.5; HGB 12.3 g/dL (11.2-15.7); Immature Grans % 0.5; Lymphocytes % 17.1; MCH 29.3 pg (27.0-33.0); MCHC 32.4 % (32.0-36.0); MCV 91 fL (80-95); MPV 10.7 fL (8.0-11.0); Monocytes % 7.1; Platelet Count 412 10^3/uL (130-400); RDW 15.4 % (11.7-14.6); RDW-SD 51.5 fL; WBC 8.75 10^3/uL (4.4-10.8)
== END 2022-04-12 03:19 | disposition home or self-care (01) ==
LOC: LBO 03:18
PROVIDERS: PCP Internal Medicine; Visit Provider Obstetrics & Gynecology
DX: D25.9 Leiomyoma of uterus, unspecified (principal); N93.9 Abnormal uterine and vaginal bleeding, unspecified; Z01.818 Encounter for other preprocedural examination; Z01.812 Encounter for preprocedural laboratory examination
CPT/HCPCS: 36415; 86850; 86900; 86901; 85025

== ENCOUNTER 2022-04-14 08:40 | Inpatient (IN) | payer OTHER, SELFPAY ==
[2022-04-14] VITALS (20 sets, daily range): BP systolic 68–138; BP diastolic 31–84; PULSE 63–85; RESP 16–25; TEMP 36.4–36.7; O2SAT 89–100; BMI 37.3
[2022-04-14 08:59] LABS: Source Nasal/Nares
[2022-04-14] MEDS: Lactated Ringers 1,000 ML 80 ML IV ×3 (09:55→16:55)
[2022-04-14 10:14] LABS: COVID-19 PCR Negative (Negative)
--- NOTE | 2022-04-14 10:50 | W.ANESPRE ---
General Info Date of Service Date Performed: 04/14/22 Height: 5 ft 7 in Weight: 108 kg Body Mass Index (BMI): 37.3 Surgical Procedure: Operation Date: 04/14/22 11:10 Proposed Procedure Side Surgeon p Hysterectomy Vaginal Laparoscopic Assist,VETO Salpingectomy,Possible MAXIME Estrella Morton DO Meds Allergies and Home Medications Allergies Allergy/AdvReac Type Severity Reaction Status Date / Time No Known Allergies Allergy Verified 04/14/22 09:11 Home Medication Medication Instructions Recorded ascorbic acid (vitamin C) 500 mg 500 mg PO DAILY 11/09/18 tablet colestipol 1 gram tablet 2 gm PO QAM 11/09/18 ferrous sulfate 325 mg (65 mg 325 mg PO DAILY 11/09/18 iron) tablet omeprazole 20 mg tablet,delayed 40 mg PO DAILY 11/09/18 release cyclobenzaprine 10 mg tablet 10 mg PO BID PRN 02/03/22 lidocaine 5 % topical patch 1 patch topical PRN 02/03/22 vitamin B complex (B 1 tab PO DAILY 02/03/22 Complex-Vitamin B12 tablet) colestipol 1 gram tablet 1 g PO HS 03/29/22 norethindrone acetate 5 mg tablet 5 mg PO BID #60 tabs 04/02/22 (Aygestin) calcium carbonate 600 mg calcium 600 mg PO 04/14/22 (1,500 mg) tablet (Calcium) Current Visit Medications: Current Medications Generic Name Dose Route Start Last Admin Trade Name Freq PRN Reason Stop Dose Admin Ringer's Solution 1,000 mls @ 80 mls/hr 04/14/22 06:00 04/14/22 09:55 IV 05/13/22 23:59 80 mls/hr INFUSION TOMI Administration Cefazolin Sodium/Dextrose 2 gm in 50 mls @ 100 mls/hr 04/14/22 06:00 Ancef Duplex IVPB 04/14/22 18:00 PREOP TOMI IV Miscellaneous Supplies 1 each 04/14/22 06:00 Iv Access IV 05/13/22 23:59 DIRECTED TOMI Sodium Chloride 0 ml 04/14/22 06:00 Normal Saline Flush 10 Ml Syr IV 05/13/22 23:59 PRN PRN Sodium Chloride 0 ml 04/14/22 06:00 Normal Saline 10 Ml Vial IJ 05/13/22 23:59 DIRECTED PRN Sterile Water 0 ml 04/14/22 06:00 Water,Injection,Sterile 10 Ml Vial IJ 05/13/22 23:59 DIRECTED PRN PFSH Active Problems Active Problems: Problem Status Onset Code Obesity (BMI 30-39.9) E66.9 Insomnia G47.00 DENISE on CPAP G47.33, Z99.89 Fibroid uterus D25.9 Hx of microcytic hypochromic anemia Z86.2 Abnormal uterine bleeding N93.9 Medical History Medical History History of IBS Medical History Comments:: Pt uses CPAP, last used 04/13/22 Surgical History Surgical History History of ankle surgery ORIF History of spinal surgery 2 rods Tobacco Smoking/Tobacco Use Status: Never Alcohol Alcohol Intake: former Substance Use Substance use: Never Substance use type: does not use Prental History History 0 Para Hx # Term Pregnancies Multiple births Hx # Pregnancies Ectopic pregnancies AB induced Hx Number of Living Children AB spontaneous Vital Signs and Lab Results Vital Signs Most Recent Vital Signs in EMR: Most Recent Vital Signs Temp Pulse Resp BP Pulse Ox 36.7 C 82 16 123/84 97 04/14/22 09:19 04/14/22 09:19 04/14/22 09:19 04/14/22 09:19 04/14/22 09:19 Point of Care Results Point of Care Results: POC- Test(urine) Negative 04/14/22 09:25 Lab Results Blood Type / Crossmatch: Patient ABO/Rh B Positive 04/12/22 Antibody Screen NEGATIVE 04/12/22 Complete Blood Count: White Blood Count 8.75 10^3/uL (4.4-10.8) 04/12/22 11:55 Red Blood Count 4.20 10^6/uL (3.93-5.22) 04/12/22 11:55 Hemoglobin 12.3 g/dL (11.2-15.7) 04/12/22 11:55 Hematocrit 38.0 % (36.0-46.0) 04/12/22 11:55 Platelet Count 412 10^3/uL (130-400) H 04/12/22 11:55 Complete Metabolic Panel: Sodium 139 mmol/L (136-145) 04/01/22 06:34 Potassium 4.1 mmol/L (3.5-5.1) 04/01/22 06:34 Chloride 105 mmol/L (98-107) 04/01/22 06:34 Carbon Dioxide 27.7 mmol/L (21.0-32.0) 04/01/22 06:34 BUN 8 mg/dL (7-18) 04/01/22 06:34 Creatinine 0.8 mg/dL (0.55-1.02) 04/01/22 06:34 Est GFR (CKD-EPI 2020) 93.70 (mL/min/1.73m2) 04/01/22 06:34 Magnesium 1.7 mg/dL (1.8-2.4) L 04/01/22 06:34 Calcium 8.2 mg/dL (8.5-10.1) L 04/01/22 06:34 Glucose 79 mg/dL (74-106) 04/01/22 06:34 Liver Function Panel: No Data to Display Coagulation Panel: No Data to Display Cardiac Panel: Troponin I < 50 ng/L (<or=60) 03/31/22 Arterial Blood Gas: No Data to Display Venous Blood Gas: No Data to Display Pancreas Panel: No Data to Display Thyroid Panel: Thyroid Stimulating Hormone (TSH) 1.34 uIU/mL (0.36-3.74) 03/31/22 10:50 Infectious Disease: Coronavirus (COVID-19)(PCR) Negative (Negative) 04/14/22 08:50 Coronavirus 2019 Source Nasal/Nares 04/14/22 08:50 Blood Cultures: No Data to Display Toxicology Panel: No Data to Display Panel: No Data to Display Imaging and Studies Imaging and Studies Study information below may be from another EMR and interpreted by another provider. Please see original notes in EMR for more complete details. EKG Summary: 03/31/2022: Sinus Bradycardia Echocardiogram Summary: 03/31/2022: Conclusion Normal left ventricular wall thickness and chamber size. Estimated ejection fraction is 60%. Wall motion is normal Normal right ventricular size and systolic function Both atria are normal in size There is no structural or hemodynamically significant valvular disease Estimated right ventricular systolic pressure is normal, 24 mmHg Anesthesia Assessment and Plan Anesthesia History Personal History: No History of Anesthesia Complications Family History: No Family History of Anesthesia Complications Exercise Tolerance Exercise Tolerance: Metabolic Equivalents>4 Pertinent Negatives Pertinent Negatives: No Symptoms of GERD, No Major Cardiovascular Symptoms or Complaints and No Major Pulmonary Symptoms or Complaints Cardiac & Pulmonary Exam Cardiac Exam: Normal S1/S2 Heart Sounds Pulmonary Exam: Clear Bilateral Breath Sounds Implantable Cardiac Device Does patient have a Pacemaker or an ICD?: No Airway Exam Known Difficult Airway: No Mallampati Class: 2 Mouth Opening: Normal (> 3cm) Thyromental Distance: Greater than 3 cm Neck Range of Motion: Limited ROM Neck Circumference: Normal Teeth Condition: Normal Dentition ASA Classification ASA Score: ASA 2 Emergency Case?: No NPO Status NPO Status: NPO Clears >2 hours, Solids >8 hours Status Status: Negative HCG Anesthesia Plan Resuscitation Status: Full Code Anesthesia Technique: General Anesthesia Airway Planned: Endotracheal Tube Monitors Used: Standard Monitors
--- NOTE | 2022-04-14 11:15 | W.PM.PROGNOT ---
Date of Service Date of service: 04/14/22 Time of Service: 11:15 Assessment and Plan Assessment and plan (1) Fibroid uterus: Status: Acute Assessment and plan: Markedly enlarged fibroid uterus which is symptomatic. Exam under anesthesia with possible laparoscopically assisted vaginal hysterectomy versus total abdominal hysterectomy with bilateral salpingectomy will be performed today. (2) Abnormal uterine bleeding: Status: Acute Subjective Subjective Interval history since last seen: Patient was seen and examined this morning. Her previously scheduled surgical procedure 2 weeks ago was canceled as immediately after placement of her intrathecal for postoperative pain control patient had significant tachycardia with heart rate in the 170s. For this reason she was admitted to the hospital for cardiac clearance, and management. She did need to stay a day for 24 hours due to the spinal but had been placed. This wore off appropriately. She had hospitalist consultation along with cardiology consultation and evaluation. She had an EKG performed which was normal. Her only abnormality from a laboratory study was for an slightly diminished magnesium which was replaced and she had a normal echocardiogram with normal cardiac structure. She was cleared from a cardiology standpoint with the caveat that perhaps intrathecal should be avoided. She is here today for her surgical procedure. All of her questions were answered. The plan will be for general anesthesia, exam under anesthesia to thoroughly evaluate the size and mobility of her significantly enlarged fibroid uterus. Based on these findings, attempt will be made a laparoscopically assisted vaginal hysterectomy with bilateral salpingectomy versus total abdominal hysterectomy. All of her questions were answered today. Otherwise today, she is feeling well and in her usual state of health. She has a stable hemoglobin at 12.3 and a negative COVID status. Objective Last Vital Signs Temp 98.1 F 04/14/22 09:19 Pulse 82 04/14/22 09:19 Resp 16 04/14/22 09:19 BP 123/84 04/14/22 09:19 Pulse Ox 97 04/14/22 09:19 Laboratory Results - last 24 hr 04/14/22 08:50 COVID-19 Source Nasal/Nares SARS-CoV-2 (PCR) Negative
[2022-04-14] MEDS: ceFAZolin 2 GM/50 ML BAG IVPB (11:22)
--- NOTE | 2022-04-14 12:53 | UTER_PTH ---
PATIENT: Marisela Fraga LOC: OBS U#:[id number] AGE/SX: 42/F ROOM: OBS.305 RE04/14/[address]: Estrella Morton DO : 1980 BED: A DIS: 04/16/2022 SPEC #: [id number] RECD: 04/14/22 17:06 STATUS: FELIX REQ #: [id number] BALJEET: 04/14/22 12:[address]: Estrella Morton DEPT: Surgical Specimen RECD BY: Candice Delacruz ENTERED: 04/14/22 17:07 SP TYPE: UTER OTHR DR: RONAL MINER Tissues: 1 - UTERUS W OR W/O OVARIES(NOT TUMOR/PROLAPSE) Procedures: GROSS AND MICRO LEVEL 5 Comments: [id number]
[2022-04-14] MEDS: Cellulose,Oxidized 4X8 1 PACKET MC (13:04)
[2022-04-14] MEDS: Bupivacaine 0.5% Pres-Free 30 ML VIAL (14:05)
--- NOTE | 2022-04-14 14:10 | ROE_ITS ---
Date of service: 04/14/22 Time of Service: 14:10 Operative Note Operative Note DATE OF PROCEDURE: 04/14/22 PRE-OP DIAGNOSIS: Markedly enlarged fibroid uterus POST-OP DIAGNOSIS: same PROCEDURE: Exam under anesthesia, total abdominal hysterectomy with bilateral salpingectomy, cystoscopy SURGEON: Estrella Morton ASSISTING SURGEON: La Nena Godinez BLOOD BANK BUSINESS MANAGER: Penny Hills ANESTHESIA TYPE: Local By Surgeon and General LMA/ETT Refer to Anesthesia Record ESTIMATED BLOOD LOSS: 800 PATHOLOGY: other (Bilateral fallopian tubes, uterus, cervix) COMPLICATIONS: None Patient was transported to: PACU Patient's condition: stable Indications: Markedly enlarged, 22-week size fibroid uterus and symptomatic anemia Findings: Markedly enlarged uterus with multiple uterine fibroids, largest measuring approximately 12 cm. Normal-appearing ovaries bilaterally. Cystoscopy confirming atraumatic bladder and functioning ureters bilaterally Procedure Description: After full informed consent was obtained, patient was taken the operating suite with IV running where she is placed in the dorsal supine position. Endotracheal intubation performed for the administration of general anesthesia with ease. At this point, patient was placed in the frog-leg position and exam under anesthesia performed to further evaluate the mobility of her uterus and the possibility of a laparoscopic approach. Her uterus was markedly enlarged, approximately 22 weeks size with multiple uterine fibroids both at the fundus, right lower quadrant, and more substantially an approximately 7 cm fibroid for filling the posterior cul-de-sac. This displaced the cervix anteriorly. Due to limited mobility, laparoscopic approach would not be appropriate. In light of this fact, she was placed in dorsal supine position for her procedure. She had vaginal preparation with Betadine, and Sultana catheter was inserted for continuous bladder drainage. Pneumatic compression stockings were placed for DVT prophylaxis. At this point a Pfannenstiel skin incision was made carried down to the underlying fascia which was nicked in the midline and the fascial incision extended laterally. The rectus muscles were split in the midline peritoneum identified tented up and entered sharply and the peritoneal incision extended superiorly and inferiorly. With a modest amount of effort, the markedly enlarged uterus was exteriorized to allow further visualization of both vascular pedicles, and support structures. Initially attention was turned to the right round ligament which was suture-ligated and transected allowing exposure of the broad ligament. The anterior bladder flap was created on the right side. Similar procedure was carried out on the left round ligament, with completion of the bladder flap after opening of the broad ligament. The right fallopian tube was then elevated, transected and suture-ligated for removal. The right utero-ovarian ligament was identified clamped transected and suture- ligated. Similar procedure was carried out on the left fallopian tube, left utero-ovarian ligament, allowing for visualization of the left utero-ovarian ligaments. The posterior most fibroid which was approximately 8 cm was slightly adherent with thin filmy adhesions which were bluntly dissected away. This allowed elevation of the entirety of the uterus, and fibroids out of the pelvis. At this point attention was turned to the ureter uterine pedicles. With meticulous attention to the vasculature, the right uterine artery and vein were identified clamped, transected and ligated. Similar procedure was carried out on the left uterine vessels. This was it with a systematic approach. Once the entirety of the uterine pedicles were ligated decision was made to truncate the uterine fundus with the bulk of the fibroids. Cautery was used to amputate the fundus and the majority of the uterus from the cervical pedicle. This was removed from the abdomen allowing better visualization. Noted was that there was a rent in the left broad ligament where the posterior fibroid had been attached. For this reason general surgery, Dr. Hills, was called to evaluate the rectosigmoid colon to ensure that this was atraumatic. There is no evidence of serosal or mucosal disruption of the rectosigmoid colon. This area was then packed with Surgicel for the remainder of the procedure. At this point attention was turned to the cervical stump which was elevated and the uterosacral cardinal complex ligaments were identified clamped transected and ligated. This allowed access to the vaginal cuff which at the cervical vaginal interface again was clamped transected and suture-ligated. The vaginal cuff was then closed using 0 Vicryl suture in a running locked fashion. There were 2 areas that were nonhemostatic at the right and left cornua which were suture-ligated and found to be hemostatic. At this point the entire abdomen was irrigated with copious amounts of normal saline. There was 1 area at the left uterine vessel pedicle with a single vessel that was nonhemostatic. 2 surgical clips were placed and hemostasis achieved. At this point, the Surgicel was removed from the posterior cul-de-sac. That area was somewhat rough and denuded and piece of thrombin Gelfoam was placed to achieve further hemostasis. Once hemostasis was noted, cystoscopy was performed. Patient was placed in a frog-leg position and her Sultana catheter that had been previously inserted was removed. With instillation of normal saline the entire bladder was inspected and found to be free of trauma. Both right and left ureteric orifice ease were noted and jetting somewhat concentrated urine. With completion of the cystoscopy cystoscope was removed and Sultana catheter reinserted. Patient was returned to the dorsal supine position. At this point again all pedicles were inspected and found to be hemostatic. All sponges were removed from the abdomen and counts were correct. The fascial incision was then closed using 0 Vicryl suture in a running fashion. Subcutaneous tissue irrigated with copious amounts of normal saline and reapproximated with 3-0 Vicryl suture in a simple interrupted fashion. The skin edge was then reapproximated with 4-0 undyed Monocryl in a subcuticular stitch. Sterile dressing was placed after Steri-Strips were placed Patient awoke from anesthesia with ease and was taken to the recovery room with a Sultana catheter in place draining blue-tinged urine from instillation of methylene blue. Complications: None apparent EBL: 800 mL fluids: Crystalloid per anesthesia Pathology: Uterus, cervix, bilateral fallopian tubes for examination.
[2022-04-14] MEDS: Ketorolac 30 MG/ML VIAL 15 MG IVP ×2 (15:14→19:46)
--- NOTE | 2022-04-14 15:55 | W.ANESPOSTOP ---
Postoperative Evaluation Date, Time and Location Date Performed: 04/14/22 Time Performed: 15:20 Patient Location: PACU Vital Signs Most Recent Imported Vital Signs: Most Recent Vital Signs Temp Pulse Resp BP Pulse Ox 36.5 C 79 24 138/60 99 04/14/22 15:40 04/14/22 15:40 04/14/22 15:40 04/14/22 15:40 04/14/22 15:40 Pain Score Most Recent Pain Score: Most Recent Pain Score Pain Level 0 04/14/22 15:40 Assessment Mental Status: Arousable with meaningful communication Airway and Respiratory Function: Patent airway with normal (patient baseline) respiratory exam Cardiovascular Function: Hemodynamically Stable Hydration Status: Adequately Hydrated Nausea & Vomiting: No Nausea or Vomiting Pain: Pt. Denies Any Pain Peripheral Nerve Block: Patient did not receive a nerve block
[2022-04-14] MEDS: oxyCODONE 5 mg/Acetaminophen 325 mg TAB PO ×2 (16:04→19:47)
--- NOTE | 2022-04-14 17:17 | W.PM.PROGNOT ---
Date of Service Date of service: 04/14/22 Time of Service: 17:17 Assessment and Plan Assessment and plan (1) Status post total abdominal hysterectomy: Status: Acute Assessment and plan: Postoperative day #0 status post total abdominal hysterectomy with bilateral salpingectomy for markedly enlarged fibroid uterus. 800 cc intraoperative blood loss. Vital signs are stable. Urine output is adequate. Tonight, will rest, up in the chair, ambulate as tolerated. Will have Sultana catheter in place until tomorrow. CBC in the morning. All questions were answered. Subjective Subjective Interval history since last seen: Patient seen and examined at this evening, shortly after her surgical procedure. Overall she is doing well. Her pain is described as pressure, low in the pelvis. She is sleepy but arousable. Vital signs are stable. Surgery was discussed at length today. Sultana catheter in place. Adequate urine output. We will continue to monitor. Routine postoperative care. Increase activity and diet as tolerated. Objective Last Vital Signs Temp 97.7 F 04/14/22 15:40 Pulse 73 04/14/22 16:15 Resp 18 04/14/22 16:15 BP 112/62 04/14/22 16:15 Pulse Ox 100 04/14/22 16:15 Laboratory Results - last 24 hr 04/14/22 08:50 COVID-19 Source Nasal/Nares SARS-CoV-2 (PCR) Negative
[2022-04-14] MEDS: Docusate Sodium 100 MG CAP PO (19:45)
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
[2022-04-15] VITALS (8 sets, daily range): BP systolic 96–116; BP diastolic 56–63; PULSE 62–88; RESP 16–18; TEMP 36.6–37.1; O2SAT 96–100
[2022-04-15] MEDS: oxyCODONE 5 mg/Acetaminophen 325 mg TAB PO ×4 (01:50→22:31)
[2022-04-15] MEDS: Ketorolac 30 MG/ML VIAL 15 MG IVP (01:51)
[2022-04-15 07:03] LABS: HGB 10.5 g/dL (11.2-15.7); MCH 29.6 pg (27.0-33.0); MCHC 32.8 % (32.0-36.0); MCV 90 fL (80-95); MPV 10.8 fL (8.0-11.0); Platelet Count 400 10^3/uL (130-400); RBC 3.55 10^6/uL (3.93-5.22); RDW 15.3 % (11.7-14.6); RDW-SD 50.6 fL; WBC 19.43 10^3/uL (4.4-10.8)
--- NOTE | 2022-04-15 07:15 | W.PM.PROGNOT ---
Date of Service Date of service: 04/15/22 Time of Service: 07:15 Assessment and Plan Assessment and plan (1) Status post total abdominal hysterectomy: Status: Acute Assessment and plan: Postoperative day #1 status post total abdominal hysterectomy with bilateral salpingectomy for markedly enlarged fibroid uterus. Doing well postop day 1. The plan for today is increased ambulation, oral pain medication, Sultana catheter out. Anticipate discharge home tomorrow. Hemoglobin stable at 10.5 Subjective Subjective Interval history since last seen: Patient seen and examined this morning. Doing well. Pain under good control. Slept through the night comfortably. CBC is pending this morning. No nausea or vomiting. Will ambulate today. Exam Const General: cooperative, healthy appearing, comfortable and no acute distress Nutritional Appearance: average body habitus Eyes General: appearance normal, both eyes and all related structures Resp Effort & Inspection: normal respiratory effort, no audible wheezes and no cough Cardio Palpation: normal PMI Rate: regular rate Rhythm: regular rhythm GI Inspection: normal to inspection and incision (Dressed) Skin General skin exam: no rashes or lesions noted Extrem General: no clubbing, cyanosis or edema and other (Pneumatic compression stockings in place) Objective Last Vital Signs Temp 98.2 F 04/15/22 04:33 Pulse 62 04/15/22 04:33 Resp 17 04/15/22 04:33 BP 108/60 04/15/22 04:33 Pulse Ox 99 04/15/22 04:33 Laboratory Results - last 24 hr 04/14/22 04/15/22 08:50 06:50 WBC 19.43 H RBC 3.55 L Hgb 10.5 L Hct 32.0 L MCV 90 MCH 29.6 MCHC 32.8 RDW 15.3 H Plt Count 400 MPV 10.8 COVID-19 Source Nasal/Nares SARS-CoV-2 (PCR) Negative
[2022-04-15] MEDS: Omeprazole 20 MG CAPCR PO (07:54)
[2022-04-15] MEDS: Colestipol 1 GM TAB 2 GM PO (08:03)
[2022-04-15] MEDS: Docusate Sodium 100 MG CAP PO ×2 (08:03→22:30)
[2022-04-15] MEDS: Colestipol 1 GM TAB PO (22:30)
[2022-04-16 07:35] VITALS: BP 119/69; PULSE 87; RESP 16; TEMP 36.5; O2SAT 95
[2022-04-16] MEDS: oxyCODONE 5 mg/Acetaminophen 325 mg TAB PO (07:44)
[2022-04-16] MEDS: Omeprazole 20 MG CAPCR PO (07:45)
[2022-04-16] MEDS: Colestipol 1 GM TAB 2 GM PO (07:45)
[2022-04-16] MEDS: Docusate Sodium 100 MG CAP PO (07:45)
--- NOTE | 2022-04-16 08:10 | PGE_ITS ---
Date of Service Date of service: 04/16/22 Time of Service: 08:10 Assessment and Plan Assessment and plan (1) Status post total abdominal hysterectomy: Status: Acute Assessment and plan: Postoperative day #2 status post total abdominal hysterectomy with bilateral salpingectomy for markedly enlarged fibroid uterus. Discharge home today. Follow-up in the office in 2 and 6 weeks. Precautions given. Prescriptions for ibuprofen, Percocet, Colace to the pharmacy. Subjective Subjective Interval history since last seen: Patient seen and examined this morning. Excited to go home. She is been ambulating, tolerating regular diet and oral pain medication with stable vital signs. Her pain is well controlled with Motrin and Percocet. All questions were answered today. Exam Narrative Exam Narrative: Feeling well, alert, oriented Const General: cooperative, healthy appearing, comfortable and no acute distress Nutritional Appearance: overweight Eyes General: appearance normal, both eyes and all related structures Resp Effort & Inspection: normal respiratory effort, no audible wheezes and no cough Auscultation: clear to auscultation bilaterally Cardio Palpation: normal PMI Rate: regular rate Rhythm: regular rhythm GI Inspection: normal to inspection, no abdominal wall ecchymosis, no edema, non- distended and incision (Clean, dry, intact. Steri-Strips in place) Neuro General: patient alert, patient awake and patient oriented x3 Extrem General: normal to inspection, no clubbing, cyanosis or edema and no calf tenderness Psych Appearance: grossly normal Objective Last Vital Signs Temp 98.2 F 04/15/22 22:30 Pulse 80 04/15/22 22:30 Resp 18 04/15/22 22:30 BP 96/56 L 04/15/22 22:30 Pulse Ox 98 04/15/22 22:30
--- NOTE | 2022-04-16 08:19 | DSE_ITS ---
Date of service: 04/16/22 Time of Service: 08:19 DS: Diagnosis Discharge Diagnosis (1) Status post total abdominal hysterectomy: Status: Acute Asessment and Plan: Postoperative day #2 status post total abdominal hysterectomy with bilateral salpingectomy for markedly enlarged fibroid uterus. Stable at discharge. Ambulating, tolerating a regular diet and oral pain medication with stable vital signs. Discharge hemoglobin 10.5. Follow-up in the office in 2 and 6 weeks. Discharge Plan Disposition Patient Disposition: Home Condition: Good Discharge Details Admit Date/Time: 04/14/22 08:40 Admit Provider: Estrella Morton Attending Provider: Estrella Morton Primary Care Provider: RONAL MINER Hospital Course Hospital Course: Patient presented to the hospital for scheduled procedure. She underwent a total abdominal hysterectomy with bilateral salpingectomy for markedly enlarged fibroid uterus. Intraoperatively, she did have approximately 800 cc blood loss which would be expected due to size and location of her fibroids. Her left, 5 cm fibroid was deep within the broad ligament and retroperitoneal space, and for this reason intraoperative consultation with general surgery to evaluate the rectosigmoid colon was performed. Colon was found to be intact and appropriate. She had stable postoperative hemoglobin at 10.5. She had normal vital signs. She progressively increased her diet, oral pain medication, and activity and was ready for discharge postoperative day #2. Her discharge hemoglobin stable at 10.5. She will be seen in the office in 2 and 6 weeks. Prescriptions are sent to the pharmacy. Home Meds and New Rx's Prescriptions: New ibuprofen 800 mg tablet 800 mg PO Q8H PRN (Reason: pain) Qty: 60 1RF oxycodone-acetaminophen [Percocet] 5-325 mg tablet 1 tab PO Q8H PRNQty: 14 0RF docusate sodium [Colace] 100 mg capsule 100 mg PO BID Qty: 30 1RF Continued omeprazole 20 mg tablet,delayed release (DR/EC) 40 mg PO DAILY colestipol 1 gram tablet 2 gm PO QAM ascorbic acid (vitamin C) 500 mg tablet 500 mg PO DAILY ferrous sulfate 325 mg (65 mg iron) tablet 325 mg PO DAILY cyclobenzaprine 10 mg tablet 10 mg PO BID PRN lidocaine 5 % adhesive patch,medicated 1 patch topical PRN Rx Instructions: leave on most painful area for up to 12 hrs vitamin B complex [B Complex-Vitamin B12] Tablet 1 tab PO DAILY colestipol 1 gram Tablet 1 g PO HS calcium carbonate [Calcium 600] 600 mg calcium (1,500 mg) Tablet 600 mg PO Discontinued norethindrone acetate [Aygestin] 5 mg tablet 5 mg PO BID Qty: 60 1RF Discharge Instructions Stand Alone Forms: 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 Activity:: Pelvic rest, no heavy lif Equipment/Supplies:: No Equipment Needed Diet:: As Tolerated Discharge Orders Discharge Orders: Discharge Order (Routine); Ordered 04/16/22 Ordered By: Estrella Morton DS: Summary Time Spent with Patient providing and/or coordinating discharge services: Less than 30 minutes Status at Discharge Functional status at discharge: independent ambulation Overall status at discharge: patient is progressing back to baseline Mental Status: mental status grossly normal Speech and Movement: speech and movement normal Mood: congruent mood Affect: normal affect Exam Narrative Exam Narrative: See physical exam from progress note dated 04/16/2022. Psych Mental Status: mental status grossly normal Speech and Movement: speech and movement normal Mood: congruent mood Affect: normal affect DS: Data Vitals/I&O Vitals and I&O: Vital Signs Temperature 98.2 F 04/15/22 22:30 Temperature Source Oral 04/15/22 22:30 Pulse 80 04/15/22 22:30 Pulse Rhythm Regular 04/15/22 22:30 Respiratory Rate 18 04/15/22 22:30 Respiratory Effort Non-Labored 04/15/22 22:30 Respiratory Depth Normal 04/15/22 22:30 Respiratory Pattern Normal 04/15/22 22:30 Blood Pressure 96/56 L 04/15/22 22:30 Pulse Oximetry 98 04/15/22 22:30 Respiratory End-tidal CO2 30 04/14/22 15:29 Oxygen Delivery Method Cpap 04/15/22 22:30 Oxygen Flow Rate 0 04/15/22 22:30 Pain Level 5 04/16/22 07:44 Comment 04/15/22 09:08 Intake & Output 04/15/22 04/15/22 04/16/22 11:59 23:59 11:59 Intake Total 1150 / 2800 1650 / 2800 Output Total 1325 / 2950 1625 / 2950 Balance -175 / -150 25 / -150 Intake: IV 1000 / 1000 Oral 1150 / 1800 650 / 1800 Output: Urine 1325 / 2950 1625 / 2950 Other: Urine Color Green Urine Appearance Clear Clear Urine Odor None Normal Comment dye colored slightly dyed Voiding Methods Toilet PFSH All Active Problems Status post total abdominal hysterectomy (Acute) Obesity (BMI 30-39.9) (Acute) Insomnia (Acute) DENISE on CPAP (Chronic) Fibroid uterus (Acute) Hx of microcytic hypochromic anemia (Acute) Abnormal uterine bleeding (Acute) Medical History History of IBS Surgical History History of ankle surgery ORIF History of spinal surgery 2 rods Family History Mother Thyroid disorder Maternal Aunt Diabetes Social History Smoking/Tobacco Use Status: Never Smoking risk assessment performed?: Yes Alcohol Intake: former Drug use: Never Substance use type: does not use 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
== END 2022-04-16 10:00 | disposition home or self-care (01) | DRG 743 ==
LOC: PDS 08:42 → OBS 15:44
PROVIDERS: Admitting Provider Obstetrics & Gynecology; PCP Internal Medicine; Visit Provider Obstetrics & Gynecology
PROC: 0UT90ZZ Resection of Uterus, Open Approach (ICD-10-PCS; CPT 58150; principal; 2022-04-14 11:00)
PROC: 0TJB8ZZ Inspection of Bladder, Via Natural or Artificial Opening Endoscopic (ICD-10-PCS; CPT 52000; 2022-04-14 11:00)
DX: D25.9 Leiomyoma of uterus, unspecified (principal); N93.9 Abnormal uterine and vaginal bleeding, unspecified; D28.2 Benign neoplasm of uterine tubes and ligaments; G47.33 Obstructive sleep apnea (adult) (pediatric); G47.00 Insomnia, unspecified; E66.9 Obesity, unspecified; Z68.37 Body mass index [BMI] 37.0-37.9, adult
CPT/HCPCS: 58150; 52000; 36415; 81025; 85027; 87635; 88307; J0690; J1100; J1885; J2250; J2405; J3010

== ENCOUNTER 2022-11-25 02:01 | Outpatient (CLI) | payer OTHER, SELFPAY ==
--- NOTE | 2022-11-25 12:20 | DI.MAMMO_ITS ---
Exam(s) MAMMO SCREENING EXAM: MAMMO SCREENING CLINICAL HISTORY: SCREENING, Z12.31,[id number]. TECHNIQUE: Bilateral full field digital CC and MLO mammographic images were obtained with 3D tomosyn thesis and utilizing computer aided detection (CAD). COMPARISON: None. This is a baseline mammogram on this 42-year-old patient. FINDINGS: There are bilateral nodular densities, some which appear to be benign intramammary lymph nodes. In addition, there is a 7 x 5 mm nodule in the left breast located 7 cm in from the nipple, possibly a benign intramammary lymph node but should undergo spot compression view and ultrasound. In the opposite-right breast there is a similar size nodule located laterally. Should also undergo s pot compression view and ultrasound. There are no malignant-appearing microcalcification groups in either breast. There is no significant architectural distortion nor skin thickening-retraction. IMPRESSION: Bilateral nodular densities. Spot compression views and bilateral breast ultrasound recommended. BI-RADS Category 0 - Assessment Incomplete: Need additional imaging evaluation Breast Density - Category B - Scattered areas of fibroglandular density Breast density Category C or D implies that the patient has dense breast tissue. Dense breast tissue can make it harder to find cancer on a mammogram. Dense breast tissue is also associated with an incr eased risk of breast cancer. This information about the result of the mammogram report was provided to the patient to raise their awareness. Use this report when you speak with the patient about their risks for breast cancer, which includes their family history. At that time, you may recommend additional screening tests (Ultrasoun d or MRI) as these tests may add significant information. A negative radiographic report should not delay biopsy if a dominant or clinically suspicious mass is present. Up to ten percent of cancers are not identified on mammography. A negative report may reinforce clinical impression. Adenosis and dense breasts may obscure an underlying neoplasm. False positive reports average 6 to 10%. Patient will receive a letter notifying them of these results.
== END 2022-11-25 02:21 ==
PROVIDERS: PCP Internal Medicine; Visit Provider Physician Assistant
DX: Z12.31 Encounter for screening mammogram for malignant neoplasm of breast (principal)
CPT/HCPCS: 77063; 77067

== ENCOUNTER 2022-12-02 01:31 | Outpatient (CLI) | payer OTHER, SELFPAY ==
--- NOTE | 2022-12-02 | DI.US_ITS ---
Exam(s) US BREAST RT LIMITED US BREAST LT LIMITED MG MAMMO SCREEN CALL BACK BI EXAM: MG MAMMO SCREEN CALL BACK BI and bilateral limited breast ultrasound CLINICAL HISTORY: F/U MAMMO, VETO NODULAR DENSITIES, [id number]. TECHNIQUE: Craniocaudal and mediolateral oblique Full Field Digital Mammography views of the bilater al breast with Computer Aided Diagnosis followed by Tomosynthesis and bilateral breast ultrasound. COMPARISON: Comparison is the patient's baseline examination dated 11/25/2022. FINDINGS: Mammography/Tomosynthesis: Masses/Architectural Distortion: In the right breast, the ovoid density in the upper outer quadrant p ersists. It measures approximately 1.3 cm. In the left breast, the area of concern is less prominen t compared to the initial examination. Microcalcifictions: No suspicious pleomorphic-type are seen. Skin Thickening/Nipple Retraction: None. Bilateral breast US: No cystic or solid lesions are seen in the left breast. Echotexture: Normal appearance of the glandular tissue. Shadowing: No suspicious foci. Cyst: None. Solid lesions: At the 9 o'clock position 8 cm from the nipple in the right breast, there is a 1 x 0.6 x 0.7 cm lobulated hypoechoic well-circumscribed nodule. No posterior acoustic enhancement is seen. This may represent a benign lesion such as an intraparenchymal lymph node or fibroadenoma. Ductal dilation: None. IMPRESSION: 1. No definite evidence of malignancy is noted. 2. A six-month follow-up bilateral mammogram is recommended for re-evaluation. Limited right breast ultrasound should be obtained at that time. 3. The findings were discussed with the patient on the date of the examination. BI-RADS Category 3 - 6 month - Probably Benign Finding: Recommend follow-up imaging in 6 months Breast Density - Category B - Scattered areas of fibroglandular density Breast density Category C or D implies that the patient has dense breast tissue. Dense breast tissue can make it harder to find cancer on a mammogram. Dense breast tissue is also associated with an incr eased risk of breast cancer. This information about the result of the mammogram report was provided to the patient to raise their awareness. Use this report when you speak with the patient about their risks for breast cancer, which includes their family history. At that time, you may recommend additional screening tests (Ultrasoun d or MRI) as these tests may add significant information. A negative radiographic report should not delay biopsy if a dominant or clinically suspicious mass is present. Up to ten percent of cancers are not identified on mammography. A negative report may reinforce clinical impression. Adenosis and dense breasts may obscure an underlying neoplasm. False positive reports average 6 to 10%. Patient will receive a letter notifying them of these results.
== END 2022-12-02 01:51 ==
LOC: DI 01:31
PROVIDERS: PCP Internal Medicine; Visit Provider Physician Assistant
DX: Z12.31 Encounter for screening mammogram for malignant neoplasm of breast (principal); N63.11 Unspecified lump in the right breast, upper outer quadrant
CPT/HCPCS: 76642; 77063; 77067

== ENCOUNTER → 2023-06-10 00:22 | Outpatient (CLI) | payer OTHER, SELFPAY ==
--- NOTE | 2023-06-10 | DI.MAMMO_ITS ---
Exam(s) US BREAST RT LIMITED MG MAMMO DIAGNOSTIC BI EXAM: MG MAMMO DIAGNOSTIC BI CLINICAL HISTORY: AUTH# [id number] ABNL MAMMO R92.8 6 MO FU. COMPARISON: MG MG MAMMO SCREENING from 11/25/2022 MG MG MAMMO SCREEN CALL BACK BI from 12/02/2022 US US BREAST RT LIMITED from 12/02/2022 US US BREAST RT LIMITED from 06/10/2023 TECHNIQUE: Craniocaudal and mediolateral oblique Full Field Digital Mammography views of both with C omputer Aided Diagnosis followed by Tomosynthesis and right breast ultrasound. FINDINGS: Mammography/Tomosynthesis: Masses/Architectural Distortion: None seen left breast. Previously questioned nodule is not apparent . No change in previously noted circumscribed ovoid nodule in the posterolateral right breast. No new findings. Microcalcifications: No suspicious pleomorphic-type are seen. Skin Thickening/Nipple Retraction: None. Right breast US: Echotexture: Normal appearance of the glandular tissue. Shadowing: No suspicious foci. Cyst: None. Solid lesions: Stable appearance ovoid circumscribed hypoechoic nodule measured today at 1.0 by 0.6 x 0.6 cm. Ductal dilation: None. IMPRESSION: 1. No evidence of malignancy is noted. 2. Bilateral screening mammography recommended in 1 year. BI-RADS Category 2 - Benign Findings Breast Density - Category B - Scattered areas of fibroglandular density A negative radiographic report should not delay biopsy if a dominant or clinically suspicious mass is present. Up to ten percent of cancers are not identified on mammography. A negative report may reinforce clinical impression. Adenosis and dense breasts may obscure an underlying neoplasm. False positive reports average 6 to 10%. Patient will receive a letter notifying them of these results.
== END ==
PROVIDERS: PCP Internal Medicine; Visit Provider Physician Assistant
DX: Z12.31 Encounter for screening mammogram for malignant neoplasm of breast (principal); M79.672 Pain in left foot; R92.8 Other abnormal and inconclusive findings on diagnostic imaging of breast
CPT/HCPCS: 76642; 77062; 77066; G0279

== ENCOUNTER → 2023-06-10 00:53 | Outpatient (CLI) | payer OTHER, SELFPAY ==
--- NOTE | 2023-06-10 | DI.RAD_ITS ---
Exam(s) XR FOOT LT COMPLETE EXAM: XR FOOT LT COMPLETE CLINICAL HISTORY: DE#[id number],LT FOOT PAIN,M79.672,LT HEEL PAIN. TECHNIQUE: 2D digital imaging was performed. Three views. COMPARISON: No exams were available for comparison FINDINGS: BONES: No acute fracture is present. No bony destructive lesion is seen. Small plantar calcaneal sp ur. erosion. JOINTS: No dislocation present. No significant degenerative changes. SOFT TISSUE: Normal. IMPRESSION: Small plantar calcaneal spur. DATA REPOSITORY: RADIATION DOSE DELIVERED:
== END ==
PROVIDERS: PCP Internal Medicine; Visit Provider Physician Assistant
DX: M77.32 Calcaneal spur, left foot (principal); Z12.31 Encounter for screening mammogram for malignant neoplasm of breast; R92.8 Other abnormal and inconclusive findings on diagnostic imaging of breast
CPT/HCPCS: 73630

== ENCOUNTER 2023-06-26 13:00 | Emergency (ER) | payer OTHER, SELFPAY ==
[2023-06-26 13:04] VITALS: BP 143/94; PULSE 98; RESP 18; TEMP 36.8; O2SAT 98
--- NOTE | 2023-06-26 13:12 | ED.GENADUL_ITS ---
HPI General Date/Time Provider Initiated Documentation: 06/26/23 13:12 . Limitations to Documentation: no limitations . Information obtained by: patient and RN notes reviewed . History of Present Illness 43 year old F presents to the emergency department with the chief complaint of right hand swelling, pain, described as moderate, Quality is described as aching, and is localized to the upper extremity. Patient reports no radiation. Patient started experiencing this day(s) and it has been constant. Immobilization improves symptom(s), Movement worsens symptoms . Patient notes no other symptoms.. Patient did receive the following treatments prior to arrival, none Related Data Home Medications Medication Instructions Recorded Confirmed ascorbic acid (vitamin C) 500 mg 500 mg PO DAILY 11/09/18 04/14/22 tablet colestipol 1 gram tablet 2 gm PO QAM 11/09/18 04/14/22 ferrous sulfate 325 mg (65 mg 325 mg PO DAILY 11/09/18 04/14/22 iron) tablet omeprazole 20 mg tablet,delayed 40 mg PO DAILY 11/09/18 04/14/22 release cyclobenzaprine 10 mg tablet 10 mg PO BID PRN 02/03/22 04/14/22 lidocaine 5 % topical patch 1 patch topical PRN 02/03/22 04/14/22 vitamin B complex (B 1 tab PO DAILY 02/03/22 04/14/22 Complex-Vitamin B12 tablet) colestipol 1 gram tablet 1 g PO HS 03/29/22 04/14/22 calcium carbonate 600 mg calcium 600 mg PO 04/14/22 (1,500 mg) tablet (Calcium) docusate sodium 100 mg capsule 100 mg PO BID #30 caps 04/16/22 (Colace) ibuprofen 800 mg tablet 800 mg PO Q8H PRN pain #60 tabs 04/16/22 Previous Rx's Medication Instructions Recorded docusate sodium 100 mg capsule 100 mg PO BID #30 caps 04/16/22 (Colace) ibuprofen 800 mg tablet 800 mg PO Q8H PRN pain #60 tabs 04/16/22 Allergies Allergy/AdvReac Type Severity Reaction Status Date / Time No Known Allergies Allergy Verified 06/26/23 13:16 General Stated Complaint: Cellulitis JOSSELIN: 3 Review of Systems Constitutional Constitutional: Reports as per HPI, Denies chills, Denies fever(s) and Denies weakness Cardiovascular Cardiovascular: Reports as per HPI Respiratory Respiratory: Reports as per HPI and Denies cough Musculoskeletal Musculoskeletal: Reports as per HPI and Denies tingling Integumentary/Breasts Skin/Breast: Reports as per HPI, Denies rash and Denies wounds Neurologic Neurologic: Reports as per HPI, Denies tingling, Denies paresthesias and Denies weakness Exam Const General: cooperative, healthy appearing, comfortable, no acute distress, well developed and well groomed Nutritional Appearance: average body habitus and well nourished Orientation: alert and awake Resp Effort & Inspection: normal respiratory effort, able to speak in complete sentences and no respiratory distress Cardio Rate: regular rate Rhythm: regular rhythm Skin General skin exam: no rashes or lesions noted Lesions: no lesions Rashes: no rashes Trauma: no lacerations or abrasions Neuro General: patient alert and patient awake Cognition: normal cognition Speech: speech normal Gait: normal gait Motor: muscle tone normal throughout Sensory Exam: no sensory deficits noted Extrem Right upper extremity: full ROM, normal capillary refill, elbow/forearm Details: normal to inspection, normal ROM and distal pulses intact; no tenderness, no swelling and no ecchymosis, wrist (ecchymosis dorsal wrist) Details: swelling, normal ROM, ecchymosis and normal vascular exam; no unusual warmth, no lacerations and no crepitus and hand Details: normal capillary refill, neuromotor exam normal, neurosensory exam normal, tendon exam normal, tenderness Location: of the dorsal hand Location: proximally, vascular exam Details: radial pulse present and normal capillary refill, normal ROM of fingers, swelling Location: of the dorsal hand Location: proximally and ecchymosis; no unusual warmth, no abrasions and no lacerations Course Vital Signs Vital signs: Vital Signs Temperature 36.8 C 06/26/23 13:04 Pulse 98 H 06/26/23 13:04 Respiratory Rate 18 06/26/23 13:04 Blood Pressure 143/94 H 06/26/23 13:04 Pulse Oximetry 98 06/26/23 13:04 Temperature 36.8 C 06/26/23 13:04 Temperature Source Skin 06/26/23 13:04 Pulse 98 H 06/26/23 13:04 Respiratory Rate 18 06/26/23 13:04 Respiratory Effort Normal, Non-Labored 06/26/23 13:11 Blood Pressure 143/94 H 06/26/23 13:04 Blood Pressure Position Sitting 06/26/23 13:04 Pulse Oximetry 98 06/26/23 13:04 Oxygen Delivery Method Room Air 06/26/23 13:04 Oxygen Flow Rate 0 06/26/23 13:04 Pain Level 2 06/26/23 13:04 Medical Decision Making Patient is a pleasant 43-year-old [id number] female presenting today with chief complaint of right hand pain. She describes an insidious onset. States that a few days ago she began noting pain over the dorsal side of the right wrist. Small area of ecchymosis. She denies any trauma. No numbness or tingling. No fevers or chills. Has not had pain like this historically. She denies any joint pain or joint swelling elsewhere. No fevers or chills. No IV drug use. On exam, patient appears nontoxic. Hemodynamically stable. She has small area of ecchymosis over the dorsal aspect of the proximal hand. This is the area of maximal tenderness. Area around this as well as the dorsum of the hand is swollen. Is not erythematous. No break in the skin. No fluctuance, discharge. She does have a healing abrasion on the palmar side over the thenar eminence but no surrounding erythema, warmth, pain. She has full range of motion of the elbow, wrist, hand. 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 Pain is maximal with dorsal flexion of the wrist. Will obtain x-ray to evaluate for potential fracture or bony abnormality. She has no skin pain to suggest gout. No systemic symptoms to suggest something like Lyme. With the ecchymosis, more likely a injury. She has been working a lot with her hands which may contribute to the continued and progressing swelling. FINDINGS: Bones/joints: Normal. Soft tissues: Normal. IMPRESSION: No acute findings. Discussed with patient. Again, at this time, I do not see systemic symptoms. More concerning for injury. Will place in splint. Encouraged RICE. Advised f/u with PCP. Return precautions discussed. All of their questions and concerns were addressed, they are in agreement with this plan. Quality:SDOH Health Related Social Needs: No Data to Display PFSH All Active Problems (Updated 06/26/23 @ 14:40 by SHAMIR Aggarwal) Hand swelling (Acute) Hand pain (Acute) Status post total abdominal hysterectomy (Acute) Obesity (BMI 30-39.9) (Acute) Insomnia (Acute) DENISE on CPAP (Chronic) Hx of microcytic hypochromic anemia (Acute) Medical History Fibroid uterus History of IBS Surgical History History of ankle surgery ORIF History of spinal surgery 2 rods Family History Mother Thyroid disorder Maternal Aunt Diabetes Social History Smoking/Tobacco Use Status: Never Smoking risk assessment performed?: Yes Alcohol Intake: former Drug use: Never Substance use type: does not use 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 [employer] Do you feel safe at home: Yes (lives alone) Do you feel safe in your relationship?: Yes Female Reproductive History Menstrual control method: condoms History History 0 Para Hx # Term Pregnancies Multiple births Hx # Pregnancies Ectopic pregnancies AB induced Hx Number of Living Children AB spontaneous Discharge Plan Disposition Patient Disposition: Home Condition: Good Discharge Details Clinical Impression: Hand pain, Hand swelling Primary Care Provider: RONAL MINER ED Provider: Violeta Munroe Home Meds and New Rx's Prescriptions: Continued omeprazole 20 mg tablet,delayed release (DR/EC) 40 mg PO DAILY colestipol 1 gram tablet 2 gm PO QAM ascorbic acid (vitamin C) 500 mg tablet 500 mg PO DAILY ferrous sulfate 325 mg (65 mg iron) tablet 325 mg PO DAILY cyclobenzaprine 10 mg tablet 10 mg PO BID PRN lidocaine 5 % adhesive patch,medicated 1 patch topical PRN Rx Instructions: leave on most painful area for up to 12 hrs vitamin B complex [B Complex-Vitamin B12] Tablet 1 tab PO DAILY colestipol 1 gram Tablet 1 g PO HS calcium carbonate [Calcium 600] 600 mg calcium (1,500 mg) Tablet 600 mg PO ibuprofen 800 mg tablet 800 mg PO Q8H PRN (Reason: pain) Qty: 60 1RF docusate sodium [Colace] 100 mg capsule 100 mg PO BID Qty: 30 1RF Discharge Instructions Instructions: Swollen Joint (ED) Additional Instructions: Your x-ray is reassuring here today. No evidence of fracture or dislocation. With the bruising, I am primarily concerned that you suffered a contusion and have some swelling associated with this. At this time, your evaluations not consistent with infection, gout. Please use the brace while your pain persist. Encouraged rest, ice, elevation. Tylenol and ibuprofen as needed for discomfort. Please follow-up with primary care in 1 to 2 weeks for reevaluation. If you develop fever/chills, redness, warmth, drainage, increased pain or other new/worsening symptoms please seek care urgently once again. Referrals: RONAL MINER [Primary Care Provider] - Discharge Data Discharge Date/Time-TO BE ENTERED AT DEPARTURE: 06/26/23 14:56
--- NOTE | 2023-06-26 13:15 | DI.RAD_ITS ---
Exam(s) XR HAND RT COMPLETE EXAM: XR HAND RT COMPLETE CLINICAL HISTORY: pain proximally, unknown injury. TECHNIQUE: 2D digital imaging was performed. Three views. COMPARISON: No exams were available for comparison FINDINGS: BONES: No acute fracture is present. No bony destructive lesion is seen. JOINTS: No dislocation present. SOFT TISSUE: Posterior swelling. No foreign body or gas collection. IMPRESSION: Soft tissue swelling. DATA REPOSITORY: RADIATION DOSE DELIVERED:
--- NOTE | 2023-06-26 14:00 | DI.VRAD_ITS ---
PROCEDURE INFORMATION: Exam: XR Right Hand Exam date and time: 06/26/2023 1:44 PM Age: 43 years old Clinical indication: Other: Pain proximally unknown injury TECHNIQUE: Imaging protocol: Radiologic exam of the right hand. Views: 3 or more views. COMPARISON: No relevant prior studies available. FINDINGS: Bones/joints: Normal. Soft tissues: Normal. IMPRESSION: No acute findings. Dictated and Authenticated by: Kevin Mcintosh MD. Ordering:ECHO Mcdaniel MD
== END 2023-06-26 14:56 | disposition home or self-care (01) ==
PROVIDERS: Emergency Provider Physician Assistant; PCP Internal Medicine
DX: M79.641 Pain in right hand (principal); R22.31 Localized swelling, mass and lump, right upper limb
CPT/HCPCS: 99283; 73130

== ENCOUNTER 2023-09-23 09:46 | Emergency (ER) | payer OTHER, SELFPAY ==
[2023-09-23 09:53] VITALS: BP 105/78; PULSE 94; RESP 18; TEMP 37; O2SAT 97
--- NOTE | 2023-09-23 09:59 | ED.GENADUL_ITS ---
Discharge Plan Disposition Patient Disposition: Home Condition: Stable Discharge Details Clinical Impression: Synovial cyst of popliteal space [Beatty], left knee Primary Care Provider: RONAL MINER ED Provider: Arnold Iverson Home Meds and New Rx's Prescriptions: Continued omeprazole 20 mg tablet,delayed release (DR/EC) 40 mg PO DAILY colestipol 1 gram tablet 2 gm PO QAM ascorbic acid (vitamin C) 500 mg tablet 500 mg PO DAILY cyclobenzaprine 10 mg tablet 10 mg PO BID PRN lidocaine 5 % adhesive patch,medicated 1 patch topical PRN Rx Instructions: leave on most painful area for up to 12 hrs vitamin B complex [B Complex-Vitamin B12] Tablet 1 tab PO DAILY colestipol 1 gram Tablet 1 g PO HS calcium carbonate [Calcium 600] 600 mg calcium (1,500 mg) Tablet 600 mg PO DAILY ibuprofen 800 mg tablet 800 mg PO Q8H PRN (Reason: pain) Qty: 60 1RF amitriptyline 25 mg tablet 25 mg PO QHS Discharge Instructions Instructions: Beatty Cyst (ED) Additional Instructions: You were seen in the emergency department for your left knee pain, you have a Beatty's cyst which is an outpouching of the joint capsule to the space behind the knee, this could be resultant from a minor sprain or strain, or other internal knee injury. Sometimes these Bakers cysts are excised by orthopedics, I recommend that you keep the compression dressing on the knee, rest, ice, compr ess and elevate the knee often over the next 1 to 2 weeks, take adequate dosing of Tylenol and ibuprofen and follow-up with orthopedics. Please return to the ED for any severe increase in redness, warmth to touch of the knee, pain with passive range of motion of the knee, increasing swelling of the left leg. Please use therapeutic dosing of Tylenol (acetamenophen) & Advil (ibuprofen) in an alternating fashion as follows: Take 1000mg of Tylenol every 6 hours without missing doses- that is 4 times per day. Group Home in between the Tylenol dosings, take 400-600mg of Advil also on a 6 hour schedule, that is also 4 times per day. The daily maximum dosing of Tylenol is 4000mg, and the daily maximum dosing of Advil is 2400mg. This is safe to do for weeks. Please note that some common cold medications & prescription pain medications may contain acetamenophen and you need to read OTC drug labels and factor that in to maximum daily dosings. Referrals: [facility] [Provider Group] RONAL MINER [Primary Care Provider] - [facility] General Date/Time Provider Initiated Documentation: 09/23/23 09:59 . HPI Narrative: 43 year-old female presents to ED today by POV/ambulating with a chief complaint of L knee pain and swelling with onset noted for about a week- pain is behind the knee, joint line, and lateral superior area. Quality described as pain with weight-bearing, pain with active ROM, mild swelling, and a small papular lesion to L knee just above and lateral to patella that could be a bug bite- patient denies any tick being present to this site over the week, no radiation to fever, myalgia, chest pain, palpitations, unilateral calf swelling, calf pain, medial thigh tenderness. Severity is described as moderate. Palliating factors include nothing specific attempted. Provoking factors include nothing specific. Patient not anticoagulated. Related Data Home Medications Medication Instructions Recorded Confirmed ascorbic acid (vitamin C) 500 mg 500 mg PO DAILY 11/09/18 09/23/23 tablet colestipol 1 gram tablet 2 gm PO QAM 11/09/18 09/23/23 omeprazole 20 mg tablet,delayed 40 mg PO DAILY 11/09/18 09/23/23 release cyclobenzaprine 10 mg tablet 10 mg PO BID PRN 02/03/22 09/23/23 lidocaine 5 % topical patch 1 patch topical PRN 02/03/22 09/23/23 vitamin B complex (B 1 tab PO DAILY 02/03/22 09/23/23 Complex-Vitamin B12 tablet) colestipol 1 gram tablet 1 g PO HS 03/29/22 09/23/23 calcium carbonate (Calcium 600) 600 mg PO DAILY 04/14/22 09/23/23 ibuprofen 800 mg tablet 800 mg PO Q8H PRN pain #60 tabs 04/16/22 09/23/23 amitriptyline 25 mg tablet 25 mg PO QHS 09/23/23 09/23/23 Previous Rx's Medication Instructions Recorded ibuprofen 800 mg tablet 800 mg PO Q8H PRN pain #60 tabs 04/16/22 Allergies Allergy/AdvReac Type Severity Reaction Status Date / Time No Known Allergies Allergy Verified 09/23/23 09:56 General Stated Complaint: Orthopedic JOSSELIN: 4 Review of Systems All systems reviewed & are unremarkable except as noted in HPI and below Exam Narrative Exam Narrative: GENERAL APPEARANCE: Well-nourished, non-toxic, awake and alert, atraumatic, no acute distress. SKIN: Warm, pink, dry, intact, without rashes/lesions/ulcerations. HEAD: Normocephalic, atraumatic, normal hair distribution for gender/age. EYES: Pupils PERRLA, EOMs intact without nystagmus, normal conjunctiva, no exudates on lids/lashes. ENT: Nares patent, no circumoral cyanosis, no facial swelling NECK: Supple, trachea midline, painless cervical ROM. LUNGS/CHEST: Non-labored respirations, normal A/P diameter, symmetrical expansion, no chest wall deformity HEART (CV/PV): Regular rate, L dorsalis pedis pulse 2+, no peripheral edema, no JVD. ABDOMEN: Soft, non-distended, no guarding. MSK: Normal ROM, no swelling/deformity to bilateral UEs or LEs, moving all extremities without weakness, no cyanosis, spine midline without tenderness, normal curvature. L Knee: Mild swelling diffusely to the left knee area, a small papular lesion with some ecchymosis to the left knee just superior and lateral to the patella, popliteal fossa tenderness, no tenderness with varus/valgus forces, Logan negative, Homans negative, anterior drawer causes pain NEURO: Mental Status AAOx4 - alert to person, place, time, events No facial droop, no forehead involvement. Motor: No focal weakness - strength 5/5 in bilateral UEs and LEs, proximal and distal, symmetric. Sensory: sensation intact to light touch globally. Gait normal: patient ambulated without ataxia into ED room. PSYCH: euthymic, cooperative, pleasant, appropriate speech Course Vital Signs Vital signs: Vital Signs Temperature 37.0 C 09/23/23 09:53 Pulse 94 H 09/23/23 09:53 Respiratory Rate 18 09/23/23 09:53 Blood Pressure 105/78 09/23/23 09:53 Pulse Oximetry 97 09/23/23 09:53 Temperature 37.0 C 09/23/23 09:53 Temperature Source Skin 09/23/23 09:53 Pulse 94 H 09/23/23 09:53 Respiratory Rate 18 09/23/23 09:53 Respiratory Effort Normal, Non-Labored 09/23/23 09:58 Blood Pressure 105/78 09/23/23 09:53 Blood Pressure Position Sitting 09/23/23 09:53 Pulse Oximetry 97 09/23/23 09:53 Oxygen Delivery Method Room Air 09/23/23 09:53 Oxygen Flow Rate 0 09/23/23 09:53 Pain Level 8 09/23/23 09:53 Comment 12/23 with movement 09/23/23 09:53 Medical Decision Making This dictation utilizes [id number] dictation software and may contain unedited grammatical errors. 43 y/o F presents to ED today with a chief complaint of L knee pain, ongoing for one week, suspicious bite lesion but states defintively no tick to the area- some eccymosis, denies medial thigh tenderness. Patients' medical history: Noncontributory. Family and social history: Noncontributory. Pertinent exam findings / vital signs include L Knee: Mild swelling diffusely to the left knee area, a small papular lesion with some ecchymosis to the left knee just superior and lateral to the patella, popliteal fossa tenderness, no tenderness with varus/valgus forces, Logan negative, Homans negative, anterior drawer causes pain, no pain with passive ROM, no erythema/warmth to touch. Differential / pathologies of concern include fracture, sprain/strain, internal knee injury, Lyme arthritis, DVT. Diagnostic studies of: -CBC, CMP, CRP/ESR, Tick Panel, D-dimer, XR L Knee. *Added US L LE DVT Study -CBC shows no leukocytosis -CMP shows nonspecific bili elevation -CRP mild elev, ESR mild elev -D-dimer 627 > US DVT Study ordered -Tick Panel Pending -XR Knee shows small joint effusion -US knee shows no DVT, positive for Beatty's Cyst Interventions of: -Evans dressing, recommend ortho f/u. ED Course/Assessment/Plan: 43-year-old female presents with left knee pain ongoing for a week, has a small joint effusion, has a suspicious lesion superior to the patella for tick bite, I did send a tick panel, I do not think it is necessary to tap the patient's knee at this time with other findings on our studies. She has a Beatty's cyst of the left knee, a gentle compression Law wrap gel dressing was placed on her knee, I recommend she follow-up with orthopedics for possible evaluation of Beatty's cyst versus other internal knee injury as cause of her small effusion. Counseled the patient on therapeutic dosing of Tylenol and ibuprofen as well as RICE therapy, strict return criteria for any severe increase in redness warmth to touch of the knee, worsening rash to the area, pain with passive range of motion. Findings not consistent with DVT, Septic Arthritis, Lyme Disease, Fracture, NV Compromise. Disposition of Synovial cyst of popliteal space [Beatty], left knee. Patient verbalized understanding of the plan and return to ED criteria and engaged in shared decision making. Medical Records Medical records reviewed: Yes I reviewed the patient's medical records. Imaging Data Radiologic Study: Attestation: I personally reviewed and interpreted this imaging study as follows: Imaging: X-Ray Radiologist's impression: EXAM: XR KNEE LT 3V AP,LAT,LENO CLINICAL HISTORY: L knee pain. TECHNIQUE: 2D digital imaging was performed. Three views. COMPARISON: No exams were available for comparison FINDINGS: BONES: No acute fracture is present. No bony destructive lesion is seen. JOINTS: The knee is normally aligned. A small joint effusion is seen. Mild degenerative changes at the patellofemoral joint. No significant joint space na rrowing. SOFT TISSUE: Normal. IMPRESSION: Small joint effusion. Radiologic Study #2: Attestation: I personally reviewed and interpreted this imaging study as follows: Imaging: Ultrasound Radiologist's impression: EXAM: US LOWER EXTREMITY VENOUS LT CLINICAL HISTORY: elevated d-dimer, L knee pain swelling. TECHNIQUE: Lower extremity venous ultrasound performed using grayscale, color- flow, and spectral Doppler analysis. COMPARISON: No exams were available for comparison FINDINGS: The common femoral, femoral and popliteal veins demonstrate normal compressibility, augmentation, and color Doppler. The posterior tibial veins are patent. No saphenous vein thrombosis or other superficial venous thrombosis is seen. Beatty's cyst measuring 2.5 x 2.3 x 4.6 cm. IMPRESSION: Beatty's cyst. No evidence of DVT. Lab Data Lab results reviewed: Yes I reviewed the patient's lab results. Labs: Laboratory Tests Range/Units 09/23/23 10:28 WBC (4.4-10.8) 10^3/uL 9.56 RBC (3.93-5.22) 10^6/uL 4.70 Hgb (11.2-15.7) g/dL 14.0 Hct (36.0-46.0) % 42.7 MCV (80-95) fL 91 MCH (27.0-33.0) pg 29.8 MCHC (32.0-36.0) % 32.8 RDW (11.7-14.6) % 13.1 Plt Count (130-400) 10^3/uL 323 MPV (8.0-11.0) fL 10.5 Immature Gran % % 0.3 Neutrophils % % 75.0 Lymphocytes % % 16.2 Monocytes % % 7.2 Eosinophils % % 0.4 Basophils % % 0.9 Nucleated RBC % (0.0-0.3) % 0.0 Absolute Neutrophils (1.2-6.7) 10^3/uL 7.16 H Absolute Lymphocytes (1.2-3.4) 10^3/uL 1.55 Absolute Monocytes (0.1-0.8) 10^3/uL 0.69 Absolute Eosinophils (0.0-0.7) 10^3/uL 0.04 Absolute Basophils (0.0-0.2) 10^3/uL 0.09 ESR (0-20) mm/hr 22 H D-Dimer (<500) ng/mlFEU 627 H Sodium (136-145) mmol/L 141 Potassium (3.5-5.1) mmol/L 4.2 Chloride (98-107) mmol/L 105 Carbon Dioxide (21.0-32.0) mmol/L 28.7 Anion Gap (3-11) mmol/L 7.3 BUN (7-18) mg/dL 14 Creatinine (0.55-1.02) mg/dL 0.7 Est GFR (CKD-EPI 2020) (mL/min/1.73m2) 109.30 Glucose (74-106) mg/dL 92 Calcium (8.5-10.1) mg/dL 9.3 Total Bilirubin (0.2-1.0) mg/dL 1.5 H AST (15-37) U/L 7 L ALT (14-59) U/L 11 L Alkaline Phosphatase (46-116) U/L 77 C-Reactive Protein (<or=0.5) mg/dL 0.73 H Total Protein (6.4-8.2) g/dL 7.6 Albumin (3.4-5.0) g/dL 3.7 Quality:SDOH Health Related Social Needs: No Data to Display PFSH All Active Problems (Updated 09/23/23 @ 11:34 by SHAMIR Abbasi) Synovial cyst of popliteal space [Beatty], left knee (Acute) Status post total abdominal hysterectomy (Acute) Obesity (BMI 30-39.9) (Acute) Insomnia (Acute) DENISE on CPAP (Chronic) Hx of microcytic hypochromic anemia (Acute) Medical History Fibroid uterus History of IBS Surgical History History of ankle surgery ORIF History of spinal surgery 2 rods Family History Mother Thyroid disorder Maternal Aunt Diabetes Social History Smoking/Tobacco Use Status: Never Smoking risk assessment performed?: Yes Alcohol Intake: former Drug use: Never Substance use type: does not use 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
[2023-09-23 10:37] LABS: Abs Immature Grans 0.03 10^3/uL (0.0-0.06); Absolute Basophil Count 0.09 10^3/uL (0.0-0.2); Absolute Eosinophil Count 0.04 10^3/uL (0.0-0.7); Absolute Lymphocyte Count 1.55 10^3/uL (1.2-3.4); Absolute Monocyte Count 0.69 10^3/uL (0.1-0.8); Absolute Neutrophil Count 7.16 10^3/uL (1.2-6.7); Basophils % 0.9 %; Eosinophils % 0.4 %; HCT 42.7 % (36.0-46.0); Immature Grans % 0.3 %; Lymphocytes % 16.2 %; MCH 29.8 pg (27.0-33.0); MCHC 32.8 % (32.0-36.0); MCV 91 fL (80-95); MPV 10.5 fL (8.0-11.0); Monocytes % 7.2 %; Platelet Count 323 10^3/uL (130-400); RDW 13.1 % (11.7-14.6); RDW-SD 43.9 fL; WBC 9.56 10^3/uL (4.4-10.8)
[2023-09-23 10:39] LABS: ESR 22 mm/hr (0-20)
[2023-09-23 10:52] LABS: ALT 11 U/L (14-59); AST 7 U/L (15-37); Albumin 3.7 g/dL (3.4-5.0); Alkaline Phosphatase 77 U/L (46-116); Anion Gap 7.3 mmol/L (3-11); BUN 14 mg/dL (7-18); Bilirubin, Total 1.5 mg/dL (0.2-1.0); C-Reactive Protein 0.73 mg/dL (<or=0.5); CO2 28.7 mmol/L (21.0-32.0); CREATININE 0.7 mg/dL (0.55-1.02); Calcium 9.3 mg/dL (8.5-10.1); Chloride 105 mmol/L (98-107); Glucose 92 mg/dL (74-106); Potassium 4.2 mmol/L (3.5-5.1); Sodium 141 mmol/L (136-145); Total Protein 7.6 g/dL (6.4-8.2)
--- NOTE | 2023-09-23 11:00 | DI.US_ITS ---
Exam(s) US LOWER EXTREMITY VENOUS LT EXAM: US LOWER EXTREMITY VENOUS LT CLINICAL HISTORY: elevated d-dimer, L knee pain swelling. TECHNIQUE: Lower extremity venous ultrasound performed using grayscale, color-flow, and spectral Do ppler analysis. COMPARISON: No exams were available for comparison FINDINGS: The common femoral, femoral and popliteal veins demonstrate normal compressibility, augmentation, and color Doppler. The posterior tibial veins are patent. No saphenous vein thrombosis or other superfi cial venous thrombosis is seen. Beatty's cyst measuring 2.5 x 2.3 x 4.6 cm. IMPRESSION: Beatty's cyst. No evidence of DVT. DATA REPOSITORY:
[2023-09-23 11:06] LABS: D-Dimer 627 ng/mlFEU (<500)
--- NOTE | 2023-09-23 11:20 | DI.RAD_ITS ---
Exam(s) XR KNEE LT 3V AP,LAT,LENO EXAM: XR KNEE LT 3V AP,LAT,LENO CLINICAL HISTORY: L knee pain. TECHNIQUE: 2D digital imaging was performed. Three views. COMPARISON: No exams were available for comparison FINDINGS: BONES: No acute fracture is present. No bony destructive lesion is seen. JOINTS: The knee is normally aligned. A small joint effusion is seen. Mild degenerative changes at the patellofemoral joint. No significant joint space narrowing. SOFT TISSUE: Normal. IMPRESSION: Small joint effusion. DATA REPOSITORY: RADIATION DOSE DELIVERED:
[2023-09-26 11:45] LABS: Lyme Ab w Rflx to Lyme Confirm Positive (Negative)
[2023-09-26 13:14] LABS: Lyme IgG Ab Positive (Negative); Lyme IgM Ab Negative (Negative)
[2023-09-27 01:20] LABS: Anaplasma phagocytophilum Negative (Negative); B. miyamotoi PCR Negative (Negative); Babesia divergens/MO-1 Negative (Negative); Babesia duncani Negative (Negative); Babesia microti Negative (Negative); Ehrlichia chaffeensis Negative (Negative); Ehrlichia ewingii/canis Negative (Negative); Ehrlichia muris eauclairensis Negative (Negative)
== END 2023-09-23 12:16 | disposition home or self-care (01) ==
PROVIDERS: Emergency Provider Physician Assistant; PCP Internal Medicine
DX: M71.22 Synovial cyst of popliteal space [Baker], left knee (principal); M25.462 Effusion, left knee
CPT/HCPCS: 36415; 73562; 80053; 85652; 86617; 87798; 99285; 85025; 85379; 86140; 86618; 93971; 99284

== ENCOUNTER → 2023-12-09 00:30 | Outpatient (CLI) | payer OTHER, SELFPAY ==
--- NOTE | 2023-12-09 07:45 | DI.MAMMO_ITS ---
Exam(s) MAMMO SCREENING EXAM: MAMMO SCREENING CLINICAL HISTORY: SCREENING, Z12.31,[id number] TECHNIQUE: Bilateral full field digital CC and MLO mammographic images were obtained with 3D tomosyn thesis and utilizing computer aided detection (CAD). COMPARISON: Available for comparison. FINDINGS: Masses/Architectural Distortion: There is stable nodules in the upper outer quadrants of both breasts . No new nodules are seen. No areas of architectural distortion are present. Microcalcifications: No suspicious pleomorphic-type are seen. Skin Thickening/Nipple Retraction: None. IMPRESSION: 1. No significant interval change with no specific features of malignancy noted. 2. Unless there is more urgent need, screening mammography is recommended, as per [employer] guidelines. BI-RADS Category 2 - Benign Findings Breast Density - Category B - Scattered areas of fibroglandular density Breast density category C or D implies that the patient has dense breast tissue. Dense breast tissue is very common and is not abnormal but dense breast tissue can make it harder to find cancer on a ma mmogram. Also, dense breast tissue may increase their breast cancer risk. This information about the result of the mammogram report was provided to the patient to raise their awareness. Use this report when you speak with the patient about their risks for breast cancer, which includes their family hist ory. At that time, you may recommend for more screening tests (Ultrasound or MRI) as they might be us eful based on their risk. A negative radiographic report should not delay biopsy if a dominant or clinically suspicious mass is present. Up to ten percent of cancers are not identified on mammography. A negative report may reinforce clinical impression. Adenosis and dense breasts may obscure an underlying neoplasm. False positive reports average 6 to 10%. Patient will receive a letter notifying them of these results.
== END ==
PROVIDERS: PCP Internal Medicine; Visit Provider Physician Assistant
DX: Z12.31 Encounter for screening mammogram for malignant neoplasm of breast (principal)
CPT/HCPCS: 77063; 77067

== ENCOUNTER 2024-12-14 01:07 | Outpatient (CLI) | payer OTHER, SELFPAY ==
--- NOTE | 2024-12-14 | DI.MAMMO_ITS ---
Exam(s) MAMMO SCREENING EXAM: MAMMO SCREENING CLINICAL HISTORY: PR# [id number] SCREENING MAMMO Z12.31. TECHNIQUE: Bilateral full field digital CC and MLO mammographic images were obtained with 3D tomosynthesis and utilizing computer aided detection (CAD). COMPARISON: Prior mammograms were reviewed. FINDINGS: There has been no significant change in the appearance and distribution of the fibroglandular tissue. No new left breast findings. Nodular densities in the upper quadrant of the right breast are unchanged from prior mammograms dating back to November 2022. There are no mammograms prior to 2022 There are no new spiculated masses nor new malignant appearing microcalcification groups. There is no significant architectural distortion nor skin thickening-retraction. IMPRESSION: Stable benign-appearing findings no radiographic evidence of malignancy. BI-RADS Category 2 - Benign Findings Breast Density - Category B - There are scattered areas of fibroglandular density. Breast density Category C or D implies that the patient has dense breast tissue. Dense breast tissue can make it harder to find cancer on a mammogram. Dense breast tissue is also associated with an increased risk of breast cancer. This information about the result of the mammogram report was provided to the patient to raise their awareness. Use this report when you speak with the patient about their risks for breast cancer, which includes their family history. At that time, you may recommend additional screening tests (Ultrasound or MRI) as these tests may add significant information. A negative radiographic report should not delay biopsy if a dominant or clinically suspicious mass is present. Up to ten percent of cancers are not identified on mammography. A negative report may reinforce clinical impression. Adenosis and dense breasts may obscure an underlying neoplasm. False positive reports average 6 to 10%. Patient will receive a letter notifying them of these results.
== END 2024-12-14 01:27 ==
PROVIDERS: PCP Internal Medicine; Visit Provider Physician Assistant
DX: Z12.31 Encounter for screening mammogram for malignant neoplasm of breast (principal); R92.323 Mammographic fibroglandular density, bilateral breasts
CPT/HCPCS: 77063; 77067